=== PATIENT | female | born 1980 | race Caucasian/White ===

== ENCOUNTER → 2018-11-28 16:23 | Outpatient (CLI) | payer OTHER, SELFPAY ==
[2018-12-04 16:58] LABS: HPV Reflexed? NOT INDICATED
== END ==
PROVIDERS: Visit Provider Obstetrics & Gynecology
DX: Z12.4 Encounter for screening for malignant neoplasm of cervix (principal)
CPT/HCPCS: 87624; 88175; G0145

== ENCOUNTER → 2020-05-09 10:16 | Outpatient (CLI) | payer OTHER, SELFPAY ==
--- NOTE | 2020-05-09 10:19 | BI_ITS ---
MAMMOGRAPHY - BILATERAL SCREENING REASON FOR EXAM: Female, 40 years old. Routine annual screening examination. PERTINENT HISTORY: Grandmother with breast cancer. Aunt with breast cancer. TECHNIQUE: Digital bilateral breast yuly (3D mammographic acquisition) in the CC and MLO projections. 2-D mediolateral oblique (MLO) and craniocaudad (CC) views of both breasts were obtained. CAD: Full Field Digital Mammography with Computer Added Detection was performed. COMPARISON: Comparison is made with prior study dated 08/08/2016. FINDINGS: Breast Composition: The breasts are heterogeneously dense, which may obscure small masses. There are no dominant masses or suspicious calcifications. Stable small benign-appearing bilateral axillary lymph nodes. No other significant abnormalities are identified. There has been no significant change since the prior study. BI/SCREEN MAMM (CAD) W/YULY BILAT IMPRESSION: Stable bilateral screening mammogram. Yearly follow-up mammogram recommended. (A) ASSESSMENT CATEGORY: BIRADS Category 2: Benign. A letter regarding these results will be sent to the patient by the facility within 30 days. Approximately 10% of breast cancers are not detected by mammography. A normal mammogram should not delay biopsy of a clinically suspicious abnormality. [id number] Electronically Signed: Hipolito Canales, at 9:12 EST , Service support ,
== END ==
PROVIDERS: Referring Provider Obstetrics & Gynecology; Visit Provider Obstetrics & Gynecology
DX: Z12.31 Encounter for screening mammogram for malignant neoplasm of breast (principal)
CPT/HCPCS: 77063; 77067

== ENCOUNTER 2021-05-17 14:40 | Outpatient (CLI) | payer OTHER, SELFPAY ==
--- NOTE | 2021-05-17 14:44 | BI_ITS ---
MAMMOGRAPHY - BILATERAL SCREENING REASON FOR EXAM: Female, 41 years old. Routine annual screening examination. PERTINENT HISTORY: Grandmother with breast cancer. Aunt with breast cancer. TECHNIQUE: Digital bilateral breast yuly (3D mammographic acquisition) in the CC and MLO projections. 2-D mediolateral oblique (MLO) and craniocaudad (CC) views of both breasts were obtained. CAD: Full Field Digital Mammography with Computer Added Detection was performed. COMPARISON: Comparison is made with prior study dated 05/09/2020 and 08/08/2016. FINDINGS: Breast Composition: The breasts are heterogeneously dense, which may obscure small masses. There are no dominant masses or suspicious calcifications. Stable small benign-appearing bilateral axillary lymph nodes. No other significant abnormalities are identified. There has been no significant change since the prior study. BI/SCRN MAMM (CAD)W/YULY BILAT IMPRESSION: Stable bilateral screening mammogram. Yearly follow-up mammogram recommended. (A) ASSESSMENT CATEGORY: BIRADS Category 2: Benign. A letter regarding these results will be sent to the patient by the facility within 30 days. Approximately 10% of breast cancers are not detected by mammography. A normal mammogram should not delay biopsy of a clinically suspicious abnormality. [id number] Electronically Signed: Hipolito Canales MD at 8:25 EST , Service support ,
== END 2021-05-17 23:59 | disposition short-term general hospital (02) ==
LOC: OPBI 14:42
PROVIDERS: Referring Provider Obstetrics & Gynecology; Visit Provider Obstetrics & Gynecology
DX: Z12.31 Encounter for screening mammogram for malignant neoplasm of breast (principal)
CPT/HCPCS: 77063; 77067

== ENCOUNTER 2021-06-21 14:36 | Outpatient (CLI) | payer OTHER, SELFPAY ==
[2021-06-25 14:08] LABS: HPV Reflexed? NOT INDICATED
== END 2021-06-21 23:59 | disposition home or self-care (01) ==
LOC: LABSPEC 14:36
PROVIDERS: Visit Provider Obstetrics & Gynecology
DX: Z12.4 Encounter for screening for malignant neoplasm of cervix (principal)
CPT/HCPCS: 88175; G0145

== ENCOUNTER → 2023-02-23 | Outpatient (CLI) | payer OTHER, SELFPAY ==
--- NOTE | 2023-02-23 15:15 | BI_ITS ---
MAMMOGRAPHY - BILATERAL SCREENING REASON FOR EXAM: Female, 42 years old. Routine annual screening examination. PERTINENT HISTORY: Grandmother with breast cancer. Aunt with breast cancer. TECHNIQUE: Digital bilateral breast yuly (3D mammographic acquisition) in the CC and MLO projections. 2-D mediolateral oblique (MLO) and craniocaudad (CC) views of both breasts were obtained. CAD: Full Field Digital Mammography with Computer Added Detection was performed. COMPARISON: Comparison is made with prior examination generally 2021 and May 09, 2020. FINDINGS: Breast Composition: The breasts are heterogeneously dense, which may obscure small masses. There are no dominant masses or suspicious calcifications. No other significant abnormalities are identified. There has been no significant change since the prior study. BI/SCRN MAMM (CAD)W/YULY BILAT IMPRESSION: Stable bilateral screening mammogram. Yearly follow-up mammogram recommended. (A) ASSESSMENT CATEGORY: BIRADS Category 1: Negative. A letter regarding these results will be sent to the patient by the facility within 30 days. Approximately 10% of breast cancers are not detected by mammography. A normal mammogram should not delay biopsy of a clinically suspicious abnormality. [id number] Electronically Signed: Hipolito Canales MD at 8:28 EDT ,
== END | disposition home or self-care (01) ==
LOC: OPBI 15:13
PROVIDERS: Referring Provider Family Medicine; Visit Provider Family Medicine
DX: Z12.31 Encounter for screening mammogram for malignant neoplasm of breast (principal)
CPT/HCPCS: 77063; 77067

== ENCOUNTER → 2024-03-08 | Outpatient (CLI) | payer OTHER, SELFPAY | END | disposition home or self-care (01) | LOC: OPBI 13:07 | DX: Z12.31 Encounter for screening mammogram for malignant neoplasm of breast (principal) | CPT/HCPCS: 77063; 77067 ==

== ENCOUNTER → 2025-03-26 | Outpatient (CLI) | payer OTHER, SELFPAY ==
--- NOTE | 2025-03-26 12:27 | BI_ITS ---
EXAM: SCRN MAMM (CAD)W/YULY BILAT DATE: 03/26/2025 CLINICAL HISTORY: F, Age 44 y/o , SCREEN TECHNIQUE: Procedure Code: [id number] Modality: MG Procedure: SCRN MAMM (CAD)W/YULY BILAT COMPARISON: Prior exam(s) dated 03/08/2024, 02/23/2023, and 05/17/2021.. FINDINGS: TISSUE DENSITY: The breasts are heterogeneously dense, which may obscure small masses. Bilateral Breast Mammographic Findings: A 7 mm partially obscured isodense mass in the superior, far posterior aspect of the right breast is noted. Further workup is indicated. A 7 mm partially obscured isodense mass in the medial aspect of the right breast is noted. Further workup is indicated. No suspicious masses, suspicious cluster of microcalcifications, architectural distortion or secondary signs of malignancy is identified in the left breast. BI/SCRN MAMM (CAD)W/YULY BILAT IMPRESSION: A 7 mm partially obscured isodense mass in the superior, far posterior aspect o f the right breast is noted. Further workup is indicated. A 7 mm partially obscured isodense mass in the medial aspect of the right breast is noted. Further workup is indicated. OVERALL FINAL ASSESSMENT BI-RADS 3: PROBABLY BENIGN. RECOMMENDATION: 6 Month Follow-up Additional Recommendation none A letter with findings and recommendations will be mailed to the patient. Reading Location: [id number]
--- OUTSIDE RECORDS SUMMARY | 2025-03-26 12:47 | XMS RPT_ITS | CCD ---
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 Name Role Phone Unavailable Primary Care Provider Unavailabl e No, Physician Primary Care Provider Unavailabl e Melvin STEPHENS, Jacqueline Primary Care Provider Unavailable Primary Care Provider Unavailabl e Melvin STEPHENS, Jacqueline Primary Care Provider Jacqueline Charles MD Unavailable Unavailable Primary Care Provider Unavailabl e MELVIN, JACQUELINE Attending Unavailable MELVIN, JACQUELINE Primary Care Unavailable MELVIN, JACQUELINE Attending Unavailable MELVIN, JACQUELINE Primary Care Unavailable MELVIN, JACQUELINE Primary Care Unavailable MELVIN, JACQUELINE Attending Unavailable MELVIN, JACQUELINE Primary Care Unavailable JOHN SAUNDERS Referring Unavailabl e Unavailable Primary Care Provider Unavailabl julia Mack MD, Breanne Mason Primary Care Provider JOHN SAUNDERS Referring Unavailabl e NADERBREANNE ESPINOSA Primary Care Unavaila ble JOHN SAUNDERS Referring Unavailabl e BREANNE MACK Primary Care Unavaila ble BREANNE MACK Referring Unavaila ble BREANNE MACK Primary Care Unavaila ble JOHN SAUNDERS Attending Unavailabl e CHELLY GEORGE Attending Unavailable BREANNE MACK Primary Care Unavaila IVORY Ragsdale Attending Unavailable IVORY MORRIS Referring Unavailable IVORY MORRIS Primary Care Unavailable Chelly George Attending Unavailable Chelly George Referring Unavailable ARTURO IVORY Primary Care Unavailable Allergies Allergy Classification Reported Allergen(s) Allergy Type Date of Onset Reaction(s) Facility (20 sources) Dexamethasone; Translations: [DEXAMETHASONE] Drug Allergy 04-08-2014 Other (See Comments), Mental Status Change [facility] (20 sources) Erythromycin; Translations: [ERYTHROMYCIN] Drug Allergy 04-03-2008 Other (See Comments) [facility] Medications Current Medications Medication Drug Class(es) Dates Sig (Normalized) Sig (Original) ascorbic acid 500 mg oral tablet (4 sources) Vitamin C take 2 tablets by mo uth once daily ascorbic acid, vitamin C, (VITAMIN C) 500 MG tablet Take 2 (two) tablets (1,000 mg total) by mouth daily . 0 Active take 1 tablet by mouth once deonna y ascorbic acid, vitamin C, (VITAMIN C) 500 MG tablet Take 500 mg by mouth daily . 0 Active b complex vitamins capsule (4 sources) take 1 capsule by mo uth once daily b complex vitamins capsule Take 1 (one) capsule by mouth daily . 0 Active take 1 capsule by mouth once kathe ly b complex vitamins capsule Take 1 capsule by mouth daily . 0 Active cholecalciferol 0.025 mg oral capsule (15 sources) Vitamin D Start: 07-16-2021 take 2 capsules by mouth once daily Cholecalciferol, Vitamin D3, 25 mcg (1,000 unit) cap Indications: Vitamin D deficiency Take 2 capsules by mouth once daily. 07/16/2021 Active take 2 tablets by mouth once kathe ly cholecalciferol, vitamin D3, 1,000 unit tablet Take 2 (two) tablets (2,000 Units total) by mouth daily . 0 Active take 1 tablet by mouth once deonna y cholecalciferol, vitamin D3, 1,000 unit tablet Take 1,000 Units by mouth daily . 0 Active Comment on above: Take 2 capsules by [facility] once daily. hydroCHLOROthiazide 12.5 mg oral capsule (12 sources) Thiazide Diuretic Start: 2021 End: 2022 take 1 capsule by mouth once daily hydroCHLOROthiazide 12.5 mg capsule Indications: Primary hypertension Take 1 capsule by mouth once daily. 90 capsule 3 03/08/2023 Active Comment on above: Take 1 capsule by mo uth once daily. levothyroxine sodium 0.15 mg oral tablet (20 sources) l-Thyroxine Start: 2022 End: 2024 levothyroxine (SYNTHROID) 150 mcg tablet Indications: Acquired hypothyroidism TAKE 1 TABLET ONCE DAILY 90 tablet 3 07/08/2024 Active Start: 06-13-2022 End: 06-13-2023 take 1 tablet by mouth once daily levothyroxine (SYNTHROID, LEVOTHROID) 125 MCG tablet Take 1 (one) tablet (125 mcg total) by mouth once daily . 30 tablet 11 06/13/2022 06/13/2023 Active Start: 07-05-2021 End: 07-11-2022 levothyroxine (SYNTHROID) 15 0 mcg tablet Indications: Acquired hypothyroidism TAKE 1 TABLET BY MOUTH ONCE DAILY. TAKE TWO PILLS ON SUNDAYS. 110 tablet 3 07/11/2022 Active Start: 06-29-2020 levothyroxine sodium (LEVOTHYROXINE ORAL) Take 150 mcg by mouth daily 150mcg Monday-Monday, 300mcg monday . 0 06/29/2020 Active Start: 06-29-2020 levothyroxine sodium (LEVOTHYROXINE ORAL) Take by mouth daily . 0 06/29/2020 Active Comment on above: Take 1 tablet by jose th once daily. Take two pills on Sundays. 24 hr metFORMIN hydrochloride 500 mg extended release oral tablet (20 sources) Biguanide Start: 05-10-2023 End: 04-15-2024 metFORMIN ER (GLUCOPHAGE XR) 500 mg 24 hr tablet Indications: PCOS (polycystic ovarian syndrome) TAKE 4 TABLETS ONCE DAILY 360 tablet 3 04/15/2024 Active Start: 10-07-2022 take 4 tablets by mo uth once daily metFORMIN ER (GLUCOPHAGE XR) 500 mg 24 hr tablet Indications: PCOS (polycystic ovarian syndrome) TAKE 4 TABLETS BY MOUTH ONCE DAILY. 360 tablet 3 10/07/2022 Active Start: 10-04-2021 take 4 tablets by mo uth once daily metFORMIN ER (GLUCOPHAGE XR) 500 mg 24 hr tablet Indications: PCOS (polycystic ovarian syndrome) Take 4 tablets by mouth once daily. 360 tablet 3 10/04/2021 Active Start: 07-05-2021 End: 10-02-2021 take 4 tablets by mouth once daily metFORMIN ER (GLUCOPHAGE XR) 500 mg 24 hr tablet Indications: PCOS (polycystic ovarian syndrome) Take 4 tablets by mouth once daily. 360 tablet 3 07/05/2021 10/02/2021 Discontinued Start: 06-29-2020 take 2000 mg by mout h once daily metformin HCl (METFORMIN ORAL) Take 2,000 mg by mouth daily . 0 06/29/2020 Active Start: 06-29-2020 metformin HCl (METFORMIN ORAL) Take by mouth . 0 06/29/2020 Active Comment on above: Take 4 tablets by [facility] once daily. methylPREDNISolone 4 mg oral tablet (5 sources) Corticosteroid Start: 2020 take 1 tablet by mouth once methylPREDNISolone (MEDROL) 4 MG tablet Take 4 mg by mouth Once, as directed on package labeling . 0 10/07/2020 Active Zinc Sulfate (4 sources) zinc sulfate (ZI NC-15 ORAL) Take by mouth . 0 Active Problems Active Problems Problem Classification Problem Date Documented Date Episodic/Chronic Disorders of lipid metabolism (4 sources) Hyperlipidemia; Translations: [Hyperlipidemia, unspecified] Onset: 07-09-2024 07-09-2024 Chronic Essential hypertension (15 sources) Hypertensive disorder; Translations: [Essential (primary) hypertension] Onset: 07-05-2021 03-01-2022 Chronic Immunizations and screening for infectious disease (1 source) Encounter for screening for human papillomavirus (HPV); Translations: [Encounter for screening for human papillomavirus (HPV)] Onset: 02-27-2025 Episodic Menopausal disorders (1 source) Excessive bleeding in the premenopausal period; Translations: [Excessive bleeding in premenopausal period] Onset: 02-27-2025 Chronic Nutritional deficiencies (18 sources) Vitamin D deficiency; Translations: [Vitamin D deficiency, unspecified] Onset: 06-20-2016 08-04-2021 Chronic Other and ill-defined heart disease (2 sources) Heart disease, unspecified; Translations: [Heart disease, unspecified] Onset: 06-02-2023 Chronic Other connective tissue disease (12 sources) Plantar fasciitis of left foot; Translations: [Plantar fascial fibromatosis] Episodic Other connective tissue disease (8 sources) Calcaneal spur; Translations: [Calcaneal spur, unspecified foot] 10-22-2020 Episodic Other connective tissue disease (2 sources) Plantar fascial fibromatosis; Translations: [Plantar fascial fibromatosis] Onset: 10-22-2020 Episodic Other endocrine disorders (20 sources) Polycystic ovary syndrome; Translations: [Polycystic ovarian syndrome] Onset: 06-20-2016 Chronic Other endocrine disorders (2 sources) Polycystic ovarian syndrome; Translations: [Polycystic ovarian syndrome] Onset: 10-22-2020 Chronic Other hereditary and degenerative nervous system conditions (3 sources) Restless legs; Translations: [Restless legs syndrome] Onset: 03-01-2022 03-01-2022 Chronic Other hereditary and degenerative nervous system conditions (2 sources) Restless legs syndrome; Translations: [Restless legs syndrome] Onset: 02-22-2022 Chronic Other liver diseases (4 sources) Alkaline phosphatase raised; Translations: [Abnormal levels of other serum enzymes] Onset: 07-09-2024 07-09-2024 Episodic Other nutritional; endocrine; and metabolic disorders (9 sources) Obesity; Translations: [Obesity, unspecified] 10-22-2020 Chronic Other nutritional; endocrine; and metabolic disorders (5 sources) Hypervitaminosis D; Translations: [Hypervitaminosis D] Onset: 08-06-2021 Chronic Other nutritional; endocrine; and metabolic disorders (3 sources) Obese class I; Translations: [Obesity, unspecified] Onset: 07-05-2021 07-05-2021 Chronic Other nutritional; endocrine; and metabolic disorders (3 sources) Disorder of carbohydrate metabolism; Translations: [Other disorders of intestinal carbohydrate absorption] Onset: 03-01-2022 03-01-2022 Chronic Other nutritional; endocrine; and metabolic disorders (2 sources) Other disorders of intestinal carbohydrate absorption; Translations: [Other disorders of intestinal carbohydrate absorption] Onset: 03-01-2022 Chronic Other nutritional; endocrine; and metabolic disorders (2 sources) Hypervitaminosis D; Translations: [Hypervitaminosis D] Onset: 08-04-2021 Chronic Other screening for suspected conditions (not mental disorders or infectious disease) (10 sources) Endocrine finding; Translations: [Other specified abnormal findings of blood chemistry] Onset: 06-20-2016 Resolved: 07-23-2018 07-23-2018 Episodic Thyroid disorders (20 sources) Hypothyroidism; Translations: [Hypothyroidism, unspecified] Onset: 05-15-2012 Resolved: 06-07-2019 Chronic Past or Other Problems Problem Classification Problem Date Documented Da te Episodic/Chronic Other circulatory disease (4 sources) Elevated blood-pressure reading without diagnosis of hypertension; Translations: [Elevated blood-pressure reading, without diagnosis of hypertension] Onset: 07-05-2021 08-04-2021 Episodic Other liver diseases (1 source) Abnormal levels of other serum enzymes; Translations: [Elevated alkaline phosphatase level] Onset: 07-09-2024 Episodic Thyroid disorders (9 sources) Disorder of thyroid gland; Translations: [Disorder of thyroid, unspecified] Resolved: 08-04-2021 Episodic Results Test Name Value Interpretation Reference Range Facility Julio 02-27-2025 CNOV Office Visit (OBGYWM ) -- INGRID CAI I ([id number]) 1980 F Date Time Provider Department 02/27/25 2:40 PM CHELLY GEORGE OBGYWM During your visit today, we recorded the following information about you: Blood pressure Weight Height Last Period 118/80 76.7 kg 1.6 m 02/01/25 Chelly George MD 02/27/2025 4:31 PM Signed Nutritionalist offered: Patient declines. Quintero is a 44 year old who presents for an annual gynecologic exam with complaints, discuss PCOS, heavy and painful periods, discuss possibility of hysterectomy. Previous patient of Dr. Garcia. Established with an dining service supervisor for thyroid disease and PCOS. She reports she is on Metformin. Reports PCP was following her CMP and alkaline phosphatase has been elevated. Per patient PCP did not recommend follow up. Age at Menarche: 13 Still get period: Yes Menstrual cycles are regular and monthly. She does not keep track of cycles. Bleeding lasts 3-4 days. Uses a super plus tampon on heaviest days and she is changing it often Had weight gain with OCP Did well with IUD in the past She is not interested in an IUD at this time. Desires a hysterectomy as she does not desire future Bleeding amount bothersome: Yes Bleeding between periods: No Period symptoms: Breast tenderness; Cramps; Mood change Time with current partner: 20 years Number of lifetime partners: 2 control frequency: Never HPV vaccine: No; HPV:N/A Last pap smear: 2009, normal History of abnormal pap: No, all prior PAP smears have been normal Bothersome pelvic pain: No Last mammogram: 2023normal OB History Gravida2 Para1 Term0 Preterm0 AB0 Living2 SAB0 IAB0 Ectopic0 Multiple0 Live Births2 Development Expert History LMP: 02/01/2025, Having periods Age at Menarche: Age at First : Age at Menopause: Development Expert History Comments: Sexual Activity: Yes; Male Contraception: Tubal Ligation Menstrual Tracking History Flowsheet Row Office Visit from 02/27/2025 in OB/Gynecology Period Cycle (Days) 30 Period Duration (Days) 4 Menstrual Flow Heavy PAST MEDICAL HISTORY Diagnosis Date Elevated dehydroepiandrosterone (DHEA) level 06/20/2016 Goiter 07/23/2018 Thyroid ultrasound in 07/2018 showed no discrete thyroid nodule bilaterally. 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 Insertion of IUD 12/31/2008 Mirena Vitamin D deficiency 06/20/2016 PAST SURGICAL HISTORY Procedure Laterality Date DELIVERY ONLY 2008 DELIVERY ONLY 2011 IUD INSERTION (CUSTODIAN SUPERVISOR DEPT)_*FL 12/31/2008 Mirena IUD REMOVAL (CUSTODIAN SUPERVISOR DEPT)_*FL 01/21/2011 LIGATE FALLOPIAN TUBE 12/2011 TONSILLECTOMY PRIMARY/SECONDARY Tonsillectomy FAMILY HISTORY Problem Relation Age of Onset No Known Problems Mother No Known Problems Father No Known Problems Brother Arthritis Maternal Grandmother Heart Maternal Grandmother Hypertension Maternal Grandfather Lipids Maternal Grandfather Breast Cancer Paternal Grandmother Alzheimer's Disease Paternal Grandfather Breast Cancer Paternal Aunt SOCIAL HISTORY Social History Tobacco Use Smoking status: Former Current packs/day: 0.00 Types: Cigarettes Start date: 10/29/2005 Quit date: 10/29/2010 Years since quittin.3 Smokeless tobacco: Never Vaping Use Vaping status: Never Used Substance Use Topics Alcohol use: No Drug use: No REVIEW OF SYSTEMS Abdomen: No abdominal pain, nausea, vomiting, diarrhea, or constipation. Bladder: No dysuria, gross hematuria, urinary frequency, urinary urgency, or incontinence. Breast: No breast lumps, nipple d/c, overlying skin changes, redness or skin retraction. Allergies and current medication updated:Yes SENSITIVE EXAM: The sensitive examination was discussed with the Patient or Patient's Authorized Multiple Drum Sander. As applicable, any other physician, advance practice provider, medical student, or other health professional student that will be observing or involved in the sensitive examination for educational or training purposes was discussed with the Patient or Authorized Multiple Drum Sander. The Patient or Authorized Multiple Drum Sander has agreed to proceed with the sensitive examination. (Sensitive examination includes inspection and/or palpation of the breasts, pelvis, prostate and anorectal regions). EXAM: BP 118/80 Ht 5' 3 (1.60m) Wt 169 lb (76.7kg) LMP 02/01/2025 BMI 29.94 kg/(m2). GENERAL: pleasant, female in no apparent distress HEENT: Normocephalic and atraumatic BREAST: soft, non-tender, symmetric, no dominant mass, normal nipple-areolar complex, no lymphadenopathy, and no nipple discharge CHEST: Normal inspiratory effort ABDOMEN: soft, non-tender, and no masses PELVIC: external genitalia normal, normal Bartholin's glands, urethra, [place]'s glands, no vulvar lesions, no cervical lesions, good vaginal support, physiologic discharge present, normal a (more content not included)... Normal [facility] HIGH RISK HUMAN PAPILLOMA RADHA (HPV), PCR FOR DETECTION AND GENOTYPINGon 02-27-2025 HPV 16 Ag Ql (Unsp spec) Not detected Normal Not detected [facility] Comment on above: Order Comment: Speci men Type: FLUID SPECIMEN Ordering Facility: [facility] Address: [address] [place] [address] Performed By: #### H PVHRT #### [facility] CLIA [id number] [address] [place] [address] [place] HPV 18 Ag Ql (Unsp spec) Not detected Normal Not detected [facility] Comment on above: Order Comment: Speci men Type: FLUID SPECIMEN Ordering Facility: [facility] Address: [address] [place] [address] Performed By: #### H PVHRT #### [facility] CLIA [id number] [address] [place] [address] [place] HPV 31+33+35+39+45+51+ 52+56+58+59+66+68 DNA DANITA+probe Ql (Cvx) Not detected Normal Not detected [facility] Comment on above: Order Comment: Speci men Type: FLUID SPECIMEN Ordering Facility: [facility] Address: [address] [place] [address] Result Comment: High Risk HPV Other Type includes HPV types 31, 33, 35, 39, 45, 51, 52, 56, 58, 59, 66 and 68. Performed By: #### H PVHRT #### [facility] CLIA [id number] [address] [place] [address] [place] PAP TESTon 02-27-2025 ADEQUACY Normal [facility] Comment on above: Order Comment: Speci men Type: FLUID SPECIMEN Ordering Facility: [facility] Address: [address] [place] [address] Result Comment: Sati sfactory for interpretation. Transformation zone present Performed By: #### L [id number] #### [facility] CLIA [id number] [address] [place] [address], [address] [place] [address] [place] [facility] CLIA [id number] [address] [place] [address] [place] CASE REPORT Normal [facility] Comment on above: Order Comment: Speci men Type: FLUID SPECIMEN Ordering Facility: [facility] Address: [address] [place] [address] Result Comment: Gyne cologic Cytology Report Case: [id number] Authorizing Provider: Chelly George MD Collected: 02/27/2025 03:23 PM Ordering Location: OB/Gynecology Received: 02/27/2025 04:27 PM First Screen: Elizabeth Allred, CT, ASCP Specimen: Pap Test, ThinPrep, Cervix Performed By: #### L [id number] #### [facility] CLIA [id number] [address] [place] [address] [place] [facility] CLIA [id number] [address] [place] [address] [place] CLINICAL HISTORY, CYTOLOGY, CUSTODIAN SUPERVISOR Routine Exam Normal [facility] Comment on above: Order Comment: Speci men Type: FLUID SPECIMEN Ordering Facility: [facility] Address: [address] [place] [address] Performed By: #### L [id number] #### [facility] CLIA [id number] [address] [place] [address] [place] [facility] CLIA [id number] [address] [place] [address] [place] FINAL PERFORMING LAB Normal [facility] Comment on above: Order Comment: Speci men Type: FLUID SPECIMEN Ordering Facility: [facility] Address: [address] [place] [address] Result Comment: Tech nical component, lead assembler screening performed at: [facility], [address] [place] [address], [address] Floor, [place] [address] CLIA: [id number] Diagnostic interpretation performed at: [facility], [address] [place] [address], [address], [place] [address] CLIA# [id number] Reimbursement Director: Theodore Minaya MD Performed By: #### L [id number] #### [facility] CLIA [id number] [address] [place] [address] 3, [address] [place] [address] [place] [facility] CLIA [id number] [address] [place] [address] [place] INTERPRETATION, CYTOLOGY, CUSTODIAN SUPERVISOR Normal [facility] Comment on above: Order Comment: Speci men Type: FLUID SPECIMEN Ordering Facility: [facility] Address: [address] [place] [address] Result Comment: Nega tive for intraepithelial lesion or malignancy. at 0917 EST Performed By: #### L [id number] #### [facility] CLIA [id number] [address] [place] [address] 3, [address] [place] [address] [place] [facility] CLIA [id number] [address] [place] [address] [place] LMP 02/01/2025 Normal [facility] Comment on above: Order Comment: Speci men Type: FLUID SPECIMEN Ordering Facility: [facility] Address: [address] [place] [address] Performed By: #### L [id number] #### [facility] CLIA [id number] [address] [place] [address] 3, [address] [place] [address] [place] [facility] CLIA [id number] [address] [place] [address] [place] PAP DISCLAIMER COMMENT The Pap Smear is a screening test for cervical cancer. False negative results occur with all screening tests, emphasizing the need for rescreening at recommended intervals, and clinical correlation. Normal [facility] Comment on above: Order Comment: Speci men Type: FLUID SPECIMEN Ordering Facility: [facility] Address: [address] [place] [address] Performed By: #### L [id number] #### [facility] CLIA [id number] [address] [place] [address] 3, [address] [place] [address] [place] [facility] CLIA [id number] [address] [place] [address] [place] PAP INTERVENTIONAL PHYSIATRIST COMMENT This specimen has be en analyzed by the FDA-approved [employer] System, which uses digital imaging and an enhanced artificial intelligence image analysis algorithm to identify montoya of interest on the microscopic slide, to assist the slot editor and pathologist in evaluating cells on ThinPrep Pap tests. Following analysis, montoya of interest on the microscopic slide selected by the algorithm are reviewed by a slot editor. If a sample requires hierarchical review, the pathologist will review the same montoya of interest selected by the algorithm prior to final interpretation. Normal [facility] Comment on above: Order Comment: Speci men Type: FLUID SPECIMEN Ordering Facility: [facility] Address: [address] [place] [address] Performed By: #### L [id number] #### [facility] CLIA [id number] [address] [place] [address] 3, [address] [place] [address] [place] [facility] CLIA [id number] [address] [place] [address] [place] Comprehensive metabolic 2000 panelon 11-28-2024 Albumin [Mass/Vol] 4.5 g/dL Normal 3.9-4.9 [facility] Comment on above: Order Comment: Speci men Type: BLOOD SPECIMEN Ordering Facility: [facility] Address: [address] [place] [address] Performed By: #### 2 4323-8 #### [facility] CLIA [id number] [address] [place] [address] [place] ALP [Catalytic activity/Vol] 136 U/L High 34-123 [facility] Comment on above: Order Comment: Speci men Type: BLOOD SPECIMEN Ordering Facility: [facility] Address: [address] [place] [address] Performed By: #### 2 4323-8 #### [facility] CLIA [id number] [address] [place] [address] [place] ALT With P-5'-P [Catalytic activity/Vol] 11 U/L Normal 7-38 [facility] Comment on above: Order Comment: Speci men Type: BLOOD SPECIMEN Ordering Facility: [facility] Address: [address] [place] [address] Performed By: #### 2 4323-8 #### [facility] CLIA [id number] [address] [place] [address] [place] Anion gap [Moles/Vol] 13 mmol/L Normal 8-15 [facility] Comment on above: Order Comment: Speci men Type: BLOOD SPECIMEN Ordering Facility: [facility] Address: [address] [place] [address] Performed By: #### 2 4323-8 #### [facility] CLIA [id number] [address] [place] [address] [place] [place] AST With P-5'-P [Catalytic activity/Vol] 13 U/L Normal 13-35 [facility] Comment on above: Order Comment: Speci men Type: BLOOD SPECIMEN Ordering Facility: [facility] Address: [address] [place] [address] Performed By: #### 2 4323-8 #### [facility] CLIA [id number] [address] [place] [address] [place] Bilirubin [Mass/Vol] 0.2 mg/dL Normal 0.2-1.3 [facility] Comment on above: Order Comment: Speci men Type: BLOOD SPECIMEN Ordering Facility: [facility] Address: [address] [place] [address] Performed By: #### 2 4323-8 #### [facility] CLIA [id number] [address] [place] [address] [place] Calcium [Mass/Vol] 10.2 mg/dL Normal 8.5-10.2 [facility] Comment on above: Order Comment: Speci men Type: BLOOD SPECIMEN Ordering Facility: [facility] Address: [address] [place] [address] Performed By: #### 2 4323-8 #### [facility] CLIA [id number] [address] [place] [address] [place] Chloride [Moles/Vol] 101 mmol/L Normal 98-107 [facility] Comment on above: Order Comment: Speci men Type: BLOOD SPECIMEN Ordering Facility: [facility] Address: [address] [place] [address] Performed By: #### 2 4323-8 #### [facility] CLIA [id number] [address] [place] [address] [place] CO2 [Moles/Vol] 25 mmol/L Normal 22-30 [facility] Comment on above: Order Comment: Speci men Type: BLOOD SPECIMEN Ordering Facility: [facility] Address: [address] [place] [address] Performed By: #### 2 4323-8 #### [facility] CLIA [id number] [address] [place] [address] [place] Creatinine [Mass/Vol] 0.69 mg/dL Normal 0.58-0.96 [facility] Comment on above: Order Comment: Speci men Type: BLOOD SPECIMEN Ordering Facility: [facility] Address: [address] [place] [address] Performed By: #### 2 4323-8 #### [facility] CLIA [id number] [address] [place] [address] [place] eGFRcr SerPlBld CKD-EPI 2020 111 mL/min/1.73m??? Normal >=60 [facility] Comment on above: Order Comment: Jamila madrigal Type: BLOOD SPECIMEN Ordering Facility: [facility] Address: [address] [place] [address] Result Comment: Sierra mated Glomerular Filtration Rate (eGFR) is calculated using the 2020 CKD-EPI creatinine equation. This equation utilizes serum creatinine, sex, and age as parameters. The creatinine assay has traceable calibration to isotope dilution-mass spectrometry. Refer to KDIGO guidelines for clinical interpretation. In patients with unstable renal function, e.g. those with acute kidney injury, the eGFR may not accurately reflect actual GFR. Performed By: #### 2 4323-8 #### [facility] CLIA [id number] [address] [place], [place] [id number] [place] Glucose [Mass/Vol] 95 mg/dL Normal 74-99 [facility] Comment on above: Order Comment: Jamila madrigal Type: BLOOD SPECIMEN Ordering Facility: [facility] Address: [address] [place] [address] Result Comment: The [place] Diabetes [employer] (ADA) provides guidance for cutoff values for fasting glucose and random glucose. The ADA defines fasting as no caloric intake for at least 8 hours. Fasting plasma glucose results between 100 to 125 mg/dL indicate increased risk for diabetes (prediabetes). Fasting plasma glucose results greater than or equal to 126 mg/dL meet the criteria for diagnosis of diabetes. In the absence of unequivocal hyperglycemia, results should be confirmed by repeat testing. In a patient with classic symptoms of hyperglycemia or hyperglycemic crisis, random plasma glucose results greater than or equal to 200 mg/dL meet the criteria for diagnosis of diabetes. Reference: Standards of Medical Care in Diabetes 2016, [place] [employer]. Diabetes Care. 2016.39(Suppl 1). Performed By: #### 2 4323-8 #### [facility] CLIA [id number] [address] [place], [place] [id number] [place] Potassium [Moles/Vol] 3.7 mmol/L Normal 3.7-5.1 [facility] Comment on above: Order Comment: Jamila madrigal Type: BLOOD SPECIMEN Ordering Facility: [facility] Address: [address] [place] [address] Performed By: #### 2 4323-8 #### [facility] CLIA [id number] [address] [place] [address] [place] Protein [Mass/Vol] 7.4 g/dL Normal 6.3-8.0 [facility] Comment on above: Order Comment: Speci men Type: BLOOD SPECIMEN Ordering Facility: [facility] Address: [address] [place] [address] Performed By: #### 2 4323-8 #### [facility] CLIA [id number] [address] [place] [address] [place] Sodium [Moles/Vol] 139 mmol/L Normal 136-144 [facility] Comment on above: Order Comment: Speci men Type: BLOOD SPECIMEN Ordering Facility: [facility] Address: [address] [place] [address] Performed By: #### 2 4323-8 #### [facility] CLIA [id number] [address] [place] [address] [place] Urea nitrogen [Mass/Vol] 9 mg/dL Normal 7-21 [facility] Comment on above: Order Comment: Speci men Type: BLOOD SPECIMEN Ordering Facility: [facility] Address: [address] [place] [address] Performed By: #### 2 4323-8 #### [facility] CLIA [id number] [address] [place] [address] [place] ALKALINE PHOSPHATASE ISOENZY MES (P)on 07-09-2024 ALK PHOS BONE % 23.2 % Normal 10.7-68.3 [facility] Comment on above: Order Comment: Speci men Type: BLOOD SPECIMEN Ordering Facility: [facility] Address: [address] [place] [address] Performed By: #### A LKISOP #### [facility] CLIA [id number] [address] [place] [address] [place] ALK PHOS LIVER % 76.8 % Normal 26.0-86.2 [facility] Comment on above: Order Comment: Speci men Type: BLOOD SPECIMEN Ordering Facility: [facility] Address: [address] [place] [address] Performed By: #### A LKISOP #### [facility] CLIA [id number] [address] [place] [address] [place] BONE FRACTION 30.2 U/L Normal 12.9-52.6 [facility] Comment on above: Order Comment: Speci men Type: BLOOD SPECIMEN Ordering Facility: [facility] Address: [address] [place] [address] Performed By: #### A LKISOP #### [facility] CLIA [id number] [address] [place] [address] [place] INTESTINE FRACTION 0.0 U/L Normal 0.0-16.3 [facility] Comment on above: Order Comment: Speci men Type: BLOOD SPECIMEN Ordering Facility: [facility] Address: [address] [place] [address] Performed By: #### A LKISOP #### [facility] CLIA [id number] [address] [place] [address] [place] LIVER FRACTION 99.8 U/L High 16.0-69.3 [facility] Comment on above: Order Comment: Speci men Type: BLOOD SPECIMEN Ordering Facility: [facility] Address: [address] [place] [address] Performed By: #### A LKISOP #### [facility] CLIA [id number] [address] [place] [address] OF SUE Neutrophils/100 WBC (Bld) 0.0 % Normal 0.0-24.2 [facility] Comment on above: Order Comment: Speci men Type: BLOOD SPECIMEN Ordering Facility: [facility] Address: [address] [place] [address] Performed By: #### A LKISOP #### [facility] CLIA [id number] [address] [place] [address] [place] ALP SerPl-cCncon 07-09-2024 ALP [Catalytic activity/Vol] 130 U/L High 34-123 [facility] Comment on above: Order Comment: Speci men Type: BLOOD SPECIMEN Ordering Facility: [facility] Address: [address] [place] [address] Performed By: #### 6 768-6 #### [facility] CLIA [id number] [address] [place] [address] [place] 25(OH)D3 SerPl-mCncon 2024 25-hydroxyvitamin D3 [Mass/Vol] 63.2 ng/mL Normal 31.0-80.0 [facility] Comment on above: Order Comment: Speci men Type: BLOOD SPECIMEN Ordering Facility: [facility] Address: [address] [place] [address] Result Comment: Clas sification of 25 [place] Vitamin D status: Deficiency/Insufficiency: < or = 30 ng/ml. Sufficiency/Optimal Levels: 31-80 ng/mL Toxicity: > 100 ng/mL. Test performed by chemiluminescent immunoassay. 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 Menses remain regular since starting metformin. History of vitamin D deficiency. Now has hypertension, on HCTZ. Weight fairly stable. COVID vaccination was completed. No new neck symptoms/enlargement. Current Outpatient Medications on File Prior to Visit Medication Sig metFORMIN ER (GLUCOPHAGE XR) 500 mg 24 hr tablet TAKE 4 TABLETS ONCE DAILY levothyroxine (SYNTHROID) 150 mcg tablet TAKE 1 TABLET ONCE DAILY hydroCHLOROthiazide 12.5 mg capsule Take 1 capsule by mouth once daily. Cholecalciferol, Vitamin D3, 25 mcg (1,000 unit) cap Take 2 capsules by mouth once daily. ALLERGIES Allergen Reactions Dexamethasone Mental Status Change Erythromycin CHILDHOOD REACTION PAST MEDICAL HISTORY Diagnosis Date Insertion of IUD 12/31/2008 Mirena PAST SURGICAL HISTORY Procedure Laterality Date IUD INSERTION ([employer])_*FL 12/31/2008 Mirena IUD REMOVAL ([employer] DE[employer])_*FL 01/21/2011 REMOVAL OF TONSILS,<12 Y/O Tonsillectomy FAMILY HISTORY Problem Relation Age of Onset Alzheimer's Disease Paternal Grandfather Arthritis Maternal Grandmother Breast Cancer Paternal Grandmother Breast Cancer Paternal Aunt Heart Maternal Grandmother Hypertension Maternal Grandfather Lipids Maternal Grandfather SOCIAL HISTORY Social History Substance Use Topics Smoking status: Former Smoker Years: 5.00 Types: Cigarettes Quit date: 10/29/2010 Smokeless tobacco: Never Used Alcohol use No Answers submitted by the patient for this visit: Core Review of Systems (Submitted on 07/01/2024) Fever : No Night sweats: No Recent unintentional weight change: No Nasal Congestion: No Hearing Loss: No Vision Disturbance: No A cough: No Difficulty Breathing?: No Chest pain: No Irregular heartbeat: No Leg Swelling: No Nausea: No Diarrhea: No Black tarry stools: No Difficulty Urinating?: No Awaken at Night More Than Once to Urinate?: No Joint pain or stiffness: No Muscle aches: No Leg or Foot Discomfort at Night?: No A rash: No Dizziness: No Headaches: No Memory Loss: No Seizures: No PHYSICAL EXAM: BP 127/80 Pulse 95 Resp 17 Ht 159.5 cm (5' 2.8) Wt 76.2 kg (167 lb 15.9 oz) LMP 06/14/2024 (Exact Date) SpO2 100% BMI 29.95 kg/m? Weight up 3 pounds since 03/2023 General: alert, in no acute distress. BP normal. Eyes: STEPH, extra occular movements normal Oropharynx: lips, mucosa, and tongue normal, Thyroid: firm, unenlarged, no palpable thyromegaly. Thyroid size: normal Heart: RRR Breathing unlabored. Abdomen:not examined Extremities: normal exam of the extremities, no edema present, no deformities Neuro: Awake, alert and oriented x 3, No involuntary motions. Skin: color, texture, turgor normal, no rashes or lesions Thyroid ultrasound in 07/2018 showed no discrete thyroid nodule bilaterally. IMPRESSION: Hypothyroidism - continue the current levothyroxine dose, recheck TFTs Vitamin D deficiency - continue supplement, check vitamin D level PCOS - continue metformin, weight loss efforts, check CMP Hypertension - good BP control, check lipid panel PLAN: Check CMP, lipid panel, TSH, free T4, and 25-hydroxyvitamin D Will call with results. Continue current medications See me again in 12 months. John Saunders MD I spent a total of 30 minutes on the date of service which included preparing to see the patient, [id number] patient care, completing clinical documentation, performing a medically appropriate examination, counseling and educating the patient/family/caregiver and ordering medications, tests, or procedures. John Saunders MD 07/08/2024 8:22 AM Signed Get labs done at [facility]. Will call with results. See me again in 12 months. Allergies As of Date: 07/08/2024 Noted Allergy Reaction DEXAMETHASONE 04/08/2014 1 - Mental Status Change ERYTHROMYCIN 04/03/2008 Comments: CHILDHOOD REACTION Date Reviewed: 07/08/2024 Reviewed by: Oseas Landa MA - Fully Assessed Reason for Visit: Thyroid Problem [110] Primary Visit Diagnosis:Primary hypertension [I10] Other Visit Diagnoses:Acquired hypothyroidism [E03.9] PCOS (polycystic ovarian syndrome) [E28.2] Vitamin D deficiency [E55.9] Order(s):LIPID PANEL, NONFASTING [SQLIPNF] Order #: [id number] FUTURE THYROID STIMULATING HORMONE [SQTSH] Order #: [id number] FUTURE T4 FREE/FREE THYROXI (more content not included)... Normal [facility] Comprehensive metabolic 2000 panelon 07-08-2024 Albumin [Mass/Vol] 4.6 g/dL 3.9 - 4.9 g/dL [facility] ALP [Catalytic activity/Vol] 153 U/L High 34 - 123 U/L [facility] ALT [Catalytic activity/Vol] 56 U/L High 7 - 38 U/L [facility] Anion gap [Moles/Vol] 13 mmol/L 8 - 15 mmol/L [facility] AST [Catalytic activity/Vol] 33 U/L 13 - 35 U/L [facility] Bilirubin [Mass/Vol] 0.3 mg/dL 0.2 - 1.3 mg/dL [facility] Calcium [Mass/Vol] 10.2 mg/dL 8.5 - 10. 2 mg/dL [facility] Chloride [Moles/Vol] 106 mmol/L 98 - 107 mmol/L [facility] CO2 [Moles/Vol] 22 mmol/L 22 - 30 mmol/L [facility] Creatinine [Mass/Vol] 0.67 mg/dL 0.58 - 0.96 mg/dL [facility] GFR/1.73 sq M.predicted among non-blacks MDRD (S/P/Bld) [Vol rate/Area] 111 mL/min/{1.73_m2} - PINF [facility] Comment on above: Estimated Glomerular Filtration Rate (eGFR) is calculated using the 2020 CKD-EPI creatinine equation. This equation utilizes serum creatinine, sex, and age as parameters. The creatinine assay has traceable calibration to isotope dilution-mass spectrometry. Refer to KDIGO guidelines for clinical interpretation. In patients with unstable renal function, e.g. those with acute kidney injury, the eGFR may not accurately reflect actual GFR. Glucose [Mass/Vol] 87 mg/dL 74 - 99 mg/dL [facility] Comment on above: The [place] Diabete s Association (ADA) provides guidance for cutoff values for fasting glucose and random glucose. The ADA defines fasting as no caloric intake for at least 8 hours. Fasting plasma glucose results between 100 to 125 mg/dL indicate increased risk for diabetes (prediabetes). Fasting plasma glucose results greater than or equal to 126 mg/dL meet the criteria for diagnosis of diabetes. In the absence of unequivocal hyperglycemia, results should be confirmed by repeat testing. In a patient with classic symptoms of hyperglycemia or hyperglycemic crisis, random plasma glucose results greater than or equal to 200 mg/dL meet the criteria for diagnosis of diabetes. Reference: Standards of Medical Care in Diabetes 2016, [place] [employer]. Diabetes Care. 2016.39(Suppl 1). Potassium [Moles/Vol] 4.4 mmol/L 3.7 - 5.1 mmol/L [facility] Protein [Mass/Vol] 7.7 g/dL 6.3 - 8.0 g/dL [facility] Sodium [Moles/Vol] 141 mmol/L 136 - 144 mmol/L [facility] Urea nitrogen [Mass/Vol] 7 mg/dL 7 - 21 mg/dL [facility] Albumin [Mass/Vol] 4.6 g/dL Normal 3.9-4.9 [facility] Comment on above: Order Comment: Jamila madrigal Type: BLOOD SPECIMEN Ordering Facility: [facility] Address: [address] [place] [address] Performed By: #### L IPNF, 6-3, 32147-1 #### [facility] CLIA [id number] [address] ALP [Catalytic activity/Vol] 153 U/L High 34-123 [facility] Comment on above: Order Comment: Jamila madrigal Type: BLOOD SPECIMEN Ordering Facility: [facility] Address: [address] [place] [address] Performed By: #### L IPNF, 6-3, 27817-0 #### [facility] CLIA [id number] [address] ALT [Catalytic activity/Vol] 56 U/L High 7-38 [facility] Comment on above: Order Comment: Jamila madrigal Type: BLOOD SPECIMEN Ordering Facility: [facility] Address: [address] [place] [address] Performed By: #### L IPNF, 6-3, 65124-3 #### [facility] CLIA [id number] [address] Anion gap [Moles/Vol] 13 mmol/L Normal 8-15 [facility] Comment on above: Order Comment: Speci men Type: BLOOD SPECIMEN Ordering Facility: [facility] Address: [address] [place] [address] Performed By: #### L IPNF, 6-3, 15177-9 #### [facility] CLIA [id number] [address] [place] [address] [place] AST [Catalytic activity/Vol] 33 U/L Normal 13-35 [facility] Comment on above: Order Comment: Speci men Type: BLOOD SPECIMEN Ordering Facility: [facility] Address: [address] [place] [address] Performed By: #### L IPNF, 6-3, 24252-8 #### [facility] CLIA [id number] [address] [place] [address] [place] Bilirubin [Mass/Vol] 0.3 mg/dL Normal 0.2-1.3 [facility] Comment on above: Order Comment: Speci men Type: BLOOD SPECIMEN Ordering Facility: [facility] Address: [address] [place] [address] Performed By: #### L IPNF, 3, 98573-3 #### [facility] CLIA [id number] [address] [place] [address] [place] Calcium [Mass/Vol] 10.2 mg/dL Normal 8.5-10.2 [facility] Comment on above: Order Comment: Speci men Type: BLOOD SPECIMEN Ordering Facility: [facility] Address: [address] [place] [address] Performed By: #### L IPNF, 3, 54023-4 #### [facility] CLIA [id number] [address] [place] [address] [place] Chloride [Moles/Vol] 106 mmol/L Normal 98-107 [facility] Comment on above: Order Comment: Speci men Type: BLOOD SPECIMEN Ordering Facility: [facility] Address: [address] [place] [address] Performed By: #### L IPNF, 6-3, 84120-2 #### [facility] CLIA [id number] [address] SUE CO2 [Moles/Vol] 22 mmol/L Normal 22-30 [facility] Comment on above: Order Comment: Jamila madrigal Type: BLOOD SPECIMEN Ordering Facility: [facility] Address: [address] [place] [address] Performed By: #### L IPNF, 6-3, 24594-6 #### [facility] CLIA [id number] [address] [facility] Creatinine [Mass/Vol] 0.67 mg/dL Normal 0.58-0.96 [facility] Comment on above: Order Comment: Jamila madrigal Type: BLOOD SPECIMEN Ordering Facility: [facility] Address: [address] [place] [address] Performed By: #### L IPNF, 6-3, 92540-8 #### [facility] CLIA [id number] [address] Creatinine and Glomerular filtration rate.predicted panel (S/P/Bld) 111 mL/min/1.73m??? Normal >=60 [facility] Comment on above: Order Comment: Jamila madrigal Type: BLOOD SPECIMEN Ordering Facility: [facility] Address: [address] [place] [address] Result Comment: Sierra mated Glomerular Filtration Rate (eGFR) is calculated using the 2020 CKD-EPI creatinine equation. This equation utilizes serum creatinine, sex, and age as parameters. The creatinine assay has traceable calibration to isotope dilution-mass spectrometry. Refer to KDIGO guidelines for clinical interpretation. In patients with unstable renal function, e.g. those with acute kidney injury, the eGFR may not accurately reflect actual GFR. Performed By: #### L IPNF, 6-3, 99068-0 #### [facility] CLIA [id number] [address] Glucose [Mass/Vol] 87 mg/dL Normal 74-99 [facility] Comment on above: Order Comment: Jamila madrigal Type: BLOOD SPECIMEN Ordering Facility: [facility] Address: [address] [place] [address] Result Comment: The [place] Diabetes Association (ADA) provides guidance for cutoff values for fasting glucose and random glucose. The ADA defines fasting as no caloric intake for at least 8 hours. Fasting plasma glucose results between 100 to 125 mg/dL indicate increased risk for diabetes (prediabetes). Fasting plasma glucose results greater than or equal to 126 mg/dL meet the criteria for diagnosis of diabetes. In the absence of unequivocal hyperglycemia, results should be confirmed by repeat testing. In a patient with classic symptoms of hyperglycemia or hyperglycemic crisis, random plasma glucose results greater than or equal to 200 mg/dL meet the criteria for diagnosis of diabetes. Reference: Standards of Medical Care in Diabetes 2016, [place] [employer]. Diabetes Care. 2016.39(Suppl 1). Performed By: #### L IPNF, 3016-3, 78753-6 #### [facility] CLIA [id number] [address] [place] [address] [place] Potassium [Moles/Vol] 4.4 mmol/L Normal 3.7-5.1 [facility] Comment on above: Order Comment: Jamila madrigal Type: BLOOD SPECIMEN Ordering Facility: [facility] Address: [address] [place] [address] Performed By: #### L IPNF, 6-3, 00694-1 #### [facility] CLIA [id number] [address] [place] [address] [place] Protein [Mass/Vol] 7.7 g/dL Normal 6.3-8.0 [facility] Comment on above: Order Comment: Jamila madrigal Type: BLOOD SPECIMEN Ordering Facility: [facility] Address: [address] [place] [address] Performed By: #### L IPNF, 6-3, 73601-8 #### [facility] CLIA [id number] [address] [place] [address] [place] Sodium [Moles/Vol] 141 mmol/L Normal 136-144 [facility] Comment on above: Order Comment: Jamila madrigal Type: BLOOD SPECIMEN Ordering Facility: [facility] Address: [address] [place] [address] Performed By: #### L IPNF, 6-3, 09822-9 #### [facility] CLIA [id number] [address] [place] [address] [place] Urea nitrogen [Mass/Vol] 7 mg/dL Normal 7-21 [facility] Comment on above: Order Comment: Speci men Type: BLOOD SPECIMEN Ordering Facility: [facility] Address: [facility] [place] [id number] Performed By: #### L IP, 3016-3, 46073-5 #### [facility] CLIA [id number] [address] [place] [address] [facility] LIPID PANEL, NONFASTINGon Cholesterol [Mass/Vol] 220 mg/dL High NINF - 200 mg/dL [facility] Comment on above: <200 mg/dL, Desirabl e 200-239 mg/dL, Borderline high >239 mg/dL, High HDL Cholesterol, Nonfasting 47 mg/dL 39 - PINF mg/dL [facility] Comment on above: 40-59 mg/dL, Accepta ble >59 mg/dL, High: Negative risk factor for coronary heart disease <40 mg/dL, Low: Positive risk factor for coronary heart disease LDL Cholesterol, Nonfasting 146 mg/dL High NINF - 100 mg/dL [facility] Comment on above: <100 mg/dL, Optimal 100-129 mg/dL, Near optimal/above optimal 130-159 mg/dL, Borderline high 160-189 mg/dL, High >189 mg/dL, Very high Secondary prevention optimal LDL Cholesterol levels are recommended to be < 70 mg/dL LDL/HDL Ratio, Nonfasting 3.11 mg/dL High NINF - 2.54 mg/dL [facility] Comment on above: Reference: 1. National Cholesterol Education Program ATP III Guideline At-A-Glance Quick Desk Reference: National Heart, Lung, and Blood [place]. National Institutes of Health. 2001: NIH Publication No. 01-3305. 2. An International Atherosclerosis Society position paper: global recommendations for the management of dyslipidemia: executive summary, Atherosclerosis. 2014: 232(2):410-413. Non HDL Cholesterol, Nonfasting 173 mg/dL High NINF - 130 mg/dL [facility] Comment on above: <130 mg/dL, Optimal 130-159 mg/dL, Near optimal/above optimal 160-189 mg/dL, Borderline high 190-219 mg/dL, High >219 mg/dL, Very high Secondary prevention optimal non HDL Cholesterol levels are recommended to be <100 mg/dL Total Chol/HDL Ratio, Nonfasting 4.68 mg/dL NINF - 5.10 mg/dL [facility] Triglycerides, Nonfasting 135 mg/dL NINF - 150 mg/dL [facility] Comment on above: <150 mg/dL, Normal 150-199 mg/dL, Borderline high 200-499 mg/dL, High >499 mg/dL, Very high VLDL Cholesterol, Nonfasting 27 mg/dL NINF - 30 mg/dL [facility] Cholesterol [Mass/Vol] 220 mg/dL High <200 [facility] Comment on above: Order Comment: Jamila madrigal Type: BLOOD SPECIMEN Ordering Facility: [facility] Address: [address] [place] [address] Result Comment: <200 mg/dL, Desirable 200-239 mg/dL, Borderline high >239 mg/dL, High Performed By: #### L CORINNA, 3016-3, 95542-0 #### [facility] CLIA [id number] [address] HDL CHOLESTEROL, NF 47 mg/dL Normal >39 [facility] Comment on above: Order Comment: Jamila madrigal Type: BLOOD SPECIMEN Ordering Facility: [facility] Address: [address] [place] [address] Result Comment: 40-5 9 mg/dL, Acceptable >59 mg/dL, High: Negative risk factor for coronary heart disease <40 mg/dL, Low: Positive risk factor for coronary heart disease Performed By: #### L CORINNA, 6-3, 50548-0 #### [facility] CLIA [id number] [address] LDL CHOLESTEROL, NF 146 mg/dL High <100 [facility] Comment on above: Order Comment: Jamila [facility] Type: BLOOD SPECIMEN Ordering Facility: [facility] Address: [address] [place] [address] Result Comment: <100 mg/dL, Optimal 100-129 mg/dL, Near optimal/above optimal 130-159 mg/dL, Borderline high 160-189 mg/dL, High >189 mg/dL, Very high Secondary prevention optimal LDL Cholesterol levels are recommended to be < 70 mg/dL Performed By: #### L IPKRISSY, 3016-3, 77886-8 #### [facility] CLIA [id number] [address] LDL/HDL RATIO, NF 3.11 mg/dL High <2.54 [facility] Comment on above: Order Comment: Jamila madrigal Type: BLOOD SPECIMEN Ordering Facility: [facility] Address: [address] [place] [address] Result Comment: Refe patyce: 1. National Cholesterol Education Program ATP III Guideline At-A-Glance Quick Desk Reference: National Heart, Lung, and Blood [place]. National Institutes of Health. 2001: NIH Publication No. 01-3305. 2. An International Atherosclerosis Society position paper: global recommendations for the management of dyslipidemia: executive summary, Atherosclerosis. 2014: 232(2):410-413. Performed By: #### L IPNF, 3, #### [facility] CLIA [id number] [address] NON HDL CHOL, NF 173 mg/dL High <130 [facility] Comment on above: Order Comment: Jamila madrigal Type: BLOOD SPECIMEN Ordering Facility: [facility] Address: [address] [place] [address] Result Comment: <130 mg/dL, Optimal 130-159 mg/dL, Near optimal/above optimal 160-189 mg/dL, Borderline high 190-219 mg/dL, High >219 mg/dL, Very high Secondary prevention optimal non HDL Cholesterol levels are recommended to be <100 mg/dL Performed By: #### L IPNF, 3015-06, #### [facility] CLIA [id number] [address] T CHOL/HDL RATIO NF 4.68 mg/dL Normal <5.10 [facility] Comment on above: Order Comment: Jamila madrigal Type: BLOOD SPECIMEN Ordering Facility: [facility] Address: [address] [place] [address] Performed By: #### L IPNF, 3015-3, 33048-0 #### [facility] CLIA [id number] [address] TRIGLYCERIDES, NF 135 mg/dL Normal <150 [facility] Comment on above: Order Comment: Jamila madrigal Type: BLOOD SPECIMEN Ordering Facility: [facility] Address: [address] [place] [address] Result Comment: <150 mg/dL, Normal 150-199 mg/dL, Borderline high 200-499 mg/dL, High >499 mg/dL, Very high Performed By: #### L IPNF, 3016-3, 17078-8 #### [facility] CLIA [id number] [address] [place] [address] [place] VLDL CHOLESTEROL, NF 27 mg/dL Normal <30 [facility] Comment on above: Order Comment: Jamila madrigal Type: BLOOD SPECIMEN Ordering Facility: [facility] Address: [address] [place] [address] Performed By: #### L IPNF, 3016-3, 83967-4 #### [facility] CLIA [id number] [address] No Panel Informationon 07-08 Interpretation and review of laboratory results Abnormal [facility] T4 Free SerPl-mCncon 025 Free T4 [Mass/Vol] 1.8 ng/dL High 0.9-1.7 [facility] Comment on above: Order Comment: Jamila madrigal Type: BLOOD SPECIMEN Ordering Facility: [facility] Address: [address] [place] [address] Performed By: #### 3 024-7 #### [facility] CLIA [id number] [address] [place] [address] [place] THYROID STIMULATING HORMONEo n 07-08-2024 TSH Qn 0.414 m[IU]/L [facility] Comment on above: If the patient is pr egnant, TSH reference range varies by gestational period: First Trimester (weeks 9-12): 0.180-2.990 mIU/L Second Trimester: 0.110-3.980 mIU/L Third Trimester: 0.480-4.710 mIU/L Thad Nation et al. A Practical Approach for the Verifications and Determination of Site- and Trimester-Specific Reference Intervals for Thyroid Function tests in . Thyroid, 2019:29:3:412-420. Marco Antonio Rowell et al. 2017 Guidelines of the [place] Thyroid Association for the Diagnosis and Management of Thyroid Disease during and the . Thyroid, 2017:27:3:315-389. TSH Qnon 07-08-2024 Interpretation and review of laboratory results Normal [facility] TSH SerPl-aCncon 07-08-2024 TSH Qn 0.414 m[IU]/L Normal 0.270-4.200 [facility] Comment on above: Order Comment: Speci men Type: BLOOD SPECIMEN Ordering Facility: [facility] Address: [address] [place] [address] Result Comment: If t he patient is , TSH reference range varies by gestational period: First Trimester (weeks 9-12): 0.180-2.990 mIU/L Second Trimester: 0.110-3.980 mIU/L Third Trimester: 0.480-4.710 mIU/L Thad Nation et al. A Practical Approach for the Verifications and Determination of Site- and Trimester-Specific Reference Intervals for Thyroid Function tests in . Thyroid, 2019:29:3:412-420. Marco Antonio Rowell et al. 2017 Guidelines of the [place] Thyroid Association for the Diagnosis and Management of Thyroid Disease during and the . Thyroid, 2017:27:3:315-389. Performed By: #### L [facility], 3016-3, 11045-9 #### [facility] CLIA [id number] [address] [place] [address] [place] SCRN MAMM (CAD)W/YULY BILATo n 03-08-2024 SCRN MAMM (CAD)W/YULY BILAT [facility] Imaging Services [address] [place] [address] [id number] SCRN MAMM (CAD)W/YULY BILAT MR#: [id number] Acct: [id number] Name: INGRID CAI Rep #: [id number] : 1980 F 43 From: Hipolito dey MD PCP: BREANNE MACK Status: REG CLI Study: SCRN MAMM (CAD)W/YULY BILAT Date of Exam: 12/22 Exam# [id number] Ordering Dr: BREANNE MACK [id number] MAMMOGRAPHY - BILATERAL SCREENING REASON FOR EXAM: Female, 43 years old. Routine annual screening examination. PERTINENT HISTORY: Grandmother with breast cancer. Aunt with breast cancer. TECHNIQUE: Digital bilateral breast yuly (3D mammographic acquisition) in the CC and MLO projections. 2-D mediolateral oblique (MLO) and craniocaudad (CC) views of both breasts were obtained. CAD: Full Field Digital Mammography with Computer Added Detection was performed. COMPARISON: Comparison is made with prior study February 23, 2023 and May 17, 2021. FINDINGS: Breast Composition: The breasts are heterogeneously dense, which may obscure small masses. There are no dominant masses or suspicious calcifications. No other significant abnormalities are identified. There has been no significant change since the prior study. BI/SCRN MAMM (CAD)W/YULY BILAT IMPRESSION: Stable bilateral screening mammogram. Yearly follow-up mammogram recommended. (A) ASSESSMENT CATEGORY: BIRADS Category 1: Negative. A letter regarding these results will be sent to the patient by the facility within 30 days. Approximately 10% of breast cancers are not detected by mammography. A normal mammogram should not delay biopsy of a clinically suspicious abnormality. [id number] Electronically Signed: Hipolito Canales MD at 8:54 EST , CC: BREANNE MACK Associate Professor Plant Pathology: Signed Normal [facility] THYROID PANEL - EXTERNALon 0 06-02-2023 Free Thyroxine (FT4) - Intl 1.4 [facility] TSH - Intl 1.27 [facility] TSH DL <= 0.005 mIU/L Qnon 0 06-09-2022 Interpretation and review of laboratory results Abnormal [facility] TSH Qn 0.09 m[IU]/L Low [facility] MRI FOOT W/O CONTRASTon 0 11-19-2020 MRI FOOT W/O CONTRAST Patient Name: INGRID CAI STUDY: MRI of the left forefoot and hindfoot/ankle without IV contrast; 11/19/2020 11:48 am INDICATION: PLANTAR FASCIITIS OF LEFT FOOT. COMPARISON/CORRELATION: None. ACCESSION NUMBER(S): [id number] ORDERING CLINICIAN: PHILIP DOMINGO TECHNIQUE: Multiplanar multisequence MR imaging of the left forefoot and hindfoot/ankle was obtained without IV contrast. FINDINGS: TENDONS: The flexor and extensor tendons of the forefoot are intact. The flexor and extensor tendons of the ankle are intact. The peroneal and Achilles tendons are intact.. LIGAMENTS: The major ligamentous structures of the forefoot are intact. The Lisfranc ligament is normal. The anterior talofibular, calcaneofibular, and posterior talofibular ligaments are intact. The anterior and posterior tibiofibular ligaments are intact. The deep and superficial components of the deltoid ligament are intact. The spring ligament is intact. There is thickening of the medial band of the plantar fascia near the calcaneal insertional site with intrinsic and surrounding soft tissue edema. Mild marrow edema at the plantar aspect of the calcaneus at the insertion of the plantar aponeurosis. There is no tear of the plantar fascia. JOINTS: The MTP and interphalangeal joints are normal in appearance. The articulations of the midfoot, hindfoot, and ankle are normal. There is no evidence of osteochondral defect. OSSEOUS STRUCTURES: There is no evidence of fracture or marrow replacing lesion. However, there is slight edema involving the plantar aspect of the calcaneus near the insertional site of the plantar fascia. SOFT TISSUES: There is no evidence of muscular atrophy or edema. No suspicious soft tissue lesions or fluid collections are identified. The tarsal tunnel is normal. The sinus tarsi is normal with preservation of fat signal. IMPRESSION: Moderate plantar fasciitis. I personally reviewed the images/study and I agree with the findings as stated. This study was interpreted at [place], [place]. Electronically signed by: SRIDEVI RASHEED MD [facility] Vital Signs Date Time Vital Sign Value Performing Clinician Svetlana augustin 07-08-2024 08:13-0400 Body height 159.5 cm John Saunders MD Work Phone: [facility] 07-08-2024 08:13-0400 Body mass index (BMI) [Ratio] 29.95 kg/m2 John Saunders MD Work Phone: [facility] 07-08-2024 08:13-0400 Body weight 76.2 kg John Saunders MD Work Phone: [facility] 07-08-2024 08:13-0400 Diastolic blood pressure 80 mm[Hg] John Saunders MD Work Phone: [facility] 07-08-2024 08:13-0400 Heart rate 95 /min John Saunders MD Work Phone: [facility] 07-08-2024 08:13-0400 Respiratory rate 17 /min John Saunders MD Work Phone: [facility] 07-08-2024 08:13-0400 SaO2% (BldA) [Mass fraction] 100 % John Saunders MD Work Phone: [facility] 07-08-2024 08:13-0400 Systolic blood pressure 127 mm[Hg] John Saunders MD Work Phone: [facility] 03-08-2023 09:09-0500 Diastolic blood pressure 82 mm[Hg] John Saunders MD Work Phone: [facility] 03-08-2023 09:09-0500 Systolic blood pressure 116 mm[Hg] John Saunders MD Work Phone: [facility] 03-08-2023 08:54-0500 Body height 161.5 cm John Saunders MD Work Phone: [facility] 03-08-2023 08:54-0500 Body weight 74.4 kg John Saunders MD Work Phone: [facility] 03-08-2023 08:54-0500 Heart rate 92 /min John Saunders MD Work Phone: [facility] 03-08-2023 08:54-0500 SaO2% (BldA) [Mass fraction] 100 % John Saunders MD Work Phone: [facility] 07-20-2022 16:50-0400 Diastolic blood pressure 89 mm[Hg] Jacqueline Charles MD Work Phone: [facility] 07-20-2022 16:50-0400 Heart rate 100 /min Jacqueline Charles MD Work Phone: [facility] 07-20-2022 16:50-0400 Respiratory rate 16 /min Jacqueline Charles MD Work Phone: [facility] 07-20-2022 16:50-0400 SaO2% (BldA) [Mass fraction] 98 % Jacqueline Charles MD Work Phone: [facility] 07-20-2022 16:50-0400 Systolic blood pressure 127 mm[Hg] Jacqueline Charles MD Work Phone: [facility] 07-20-2022 16:40-0400 Body height 161.5 cm Jacqueline Charles MD Work Phone: [facility] 07-20-2022 16:40-0400 Body mass index (BMI) [Ratio] 30.11 kg/m2 Jacqueline Charles MD Work Phone: [facility] 07-20-2022 16:40-0400 Body temperature 98.29 [degF] Jacqueline Charles MD Work Phone: [facility] 07-20-2022 16:40-0400 Body weight 78.52 kg Jacqueline Charles MD Work Phone: [facility] 08-04-2021 16:15-0400 Diastolic blood pressure 88 mm[Hg] Jacqueline Charles MD Work Phone: [facility] 08-04-2021 16:15-0400 Systolic blood pressure 128 mm[Hg] Jacqueline Charles MD Work Phone: [facility] 08-04-2021 16:12-0400 Body height 161.5 cm Jacqueline Charles MD Work Phone: [facility] 08-04-2021 16:12-0400 Body mass index (BMI) [Ratio] 30.75 kg/m2 Jacqueline Charles MD Work Phone: [facility] 08-04-2021 16:12-0400 Body temperature 98.2 [degF] Jacqueline Charles MD Work Phone: [facility] 08-04-2021 16:12-0400 Body weight 80.2 kg Jacqueline Charles MD Work Phone: [facility] 08-04-2021 16:12-0400 Heart rate 101 /min Jacqueline Charles MD Work Phone: [facility] 08-04-2021 16:12-0400 Respiratory rate 18 /min Jacqueline Charles MD Work Phone: [facility] 08-04-2021 16:12-0400 SaO2% (BldA) [Mass fraction] 96 % Jacqueline Charles MD Work Phone: [facility] 12-04-2020 09:35-0400 Body height 157.5 cm Philip Domingo Jr. DPM Work Phone: [facility] 12-04-2020 09:35-0400 Body mass index (BMI) [Ratio] 30.18 kg/m2 Philip Domingo Jr., DPM Work Phone: [facility] 12-04-2020 09:35-0400 Body temperature 96.69 [degF] Philip Domingo Jr., DPM Work Phone: [facility] 12-04-2020 09:35-0400 Body weight 74.84 kg Philip Landon Jr., DPM Work Phone: [facility] 12-04-2020 09:35-0400 Diastolic blood pressure 101 mm[Hg] Philip Landon Jr., DPM Work Phone: [facility] 12-04-2020 09:35-0400 Heart rate 92 /min Philip Landon Jr., DPM Work Phone: [facility] 12-04-2020 09:35-0400 Systolic blood pressure 126 mm[Hg] Philip Landon Jr., DPM Work Phone: [facility] 11-04-2020 10:51-0400 Body temperature 98.2 [degF] Philip Landon Jr., DPM Work Phone: [facility] 11-04-2020 10:51-0400 Diastolic blood pressure 103 mm[Hg] Philip Landon Jr., DPM Work Phone: [facility] 11-04-2020 10:51-0400 Heart rate 82 /min Philip Landon Jr., DPM Work Phone: [facility] 11-04-2020 10:51-0400 Systolic blood pressure 137 mm[Hg] Philip Landon Jr., DPM Work Phone: [facility] 10-07-2020 08:10-0400 Body height 157.5 cm Philip Landon Jr., DPM Work Phone: [facility] 07-29-2020 08:10-0400 Body mass index (BMI) [Ratio] 30.18 kg/m2 Philip Landon Jr., DPM Work Phone: [facility] 07-29-2020 08:10-0400 Body weight 74.84 kg Philip Landon Jr., DPM Work Phone: [facility] 06-29-2020 08:10-0500 Diastolic blood pressure 104 mm[Hg] Philip Landon Jr., DPM Work Phone: [facility] 06-29-2020 08:10-0500 Systolic blood pressure 148 mm[Hg] Philip Domingo Jr. DPMaday Work Phone: [facility] Encounters Encounter Date Encounter Type Care Provider Facility Start: [facility]-20[facility] Start: 02-27-2025 End: 02-27-2025 ambulatory [facility] Facility:[facility] Start: 02-27-2025 Encounter for gyneco logical examination (general) (routine) without abnormal findings CHELLY [facility] Start: 11-28-2024 End: 11-28-2024 ambulatory [facility]ANNE [facility] Facility:[facility] Start: 07-11-2024 End: 09-10-2024 Follow-up encounter John Saunders MD Work Phone: [place] Provider Adult Start: 07-09-2024 End: 07-09-2024 ambulatory JOHN SAUNDERS Facility:[facility] Start: 07-09-2024 End: 07-09-2024 Follow-up encounter John Saunders MD Work Phone: Endocrinology Comment on above: Pure hypercholestero lemia (Primary Dx); Elevated alkaline phosphatase level Start: 07-08-2024 End: 07-09-2024 ambulatory JOHN SAUNDERS Facility:[facility] Comment on above: Blood Teat Results Start: 07-08-2024 End: 07-08-2024 Patient encounter procedure John Saunders MD Work Phone: Endocrinology Comment on above: Primary hypertension (Primary Dx); Acquired hypothyroidism; PCOS (polycystic ovarian syndrome); Vitamin D deficiency Start: 04-15-2024 End: 04-15-2024 Refill John Saunders MD Work Phone: Endocrinology Comment on above: Refill Request Start: 03-08-2024 End: 03-08-2024 ambulatory IVORY MORRIS Facility:[facility] Start: 06-08-2023 Orders Only John Saunders MD Work Phone: Endocrinology Start: 06-07-2023 ambulatory John Saunders MD Work Phone: Endocrinology Comment on above: Bloodwork Start: 06-02-2023 End: 06-06-2023 ambulatory JACQUELINE CHARLES [facility] Start: 03-08-2023 End: 03-08-2023 Patient encounter procedure John Saunders MD Work Phone: Endocrinology Comment on above: Acquired hypothyroid ism (Primary Dx); PCOS (polycystic ovarian syndrome); Primary hypertension; Vitamin D deficiency Start: 02-27-2023 ambulatory John Saunders MD Work Phone: Endocrinology Comment on above: Bloodwork Start: 02-23-2023 End: 02-23-2023 ambulatory [facility] Work Phone: Start: 02-23-2023 End: 02-23-2023 Patient encounter procedure [facility] Work Phone: Start: 07-20-2022 End: 07-20-2022 ambulatory JACQUELINE CHARLES [facility] Amb[facility] Start: 07-20-2022 End: 07-20-2022 Periodic preventive med est patient 40-64yrs Jacqueline Charles MD Work Phone: [facility] Comment on above: Preventative health care (Primary Dx); Hypertension, unspecified type; Hypothyroidism, unspecified type Start: 07-20-2022 End: 07-20-2022 Patient encounter status Jacqueline Charles MD Work Phone: [facility] Start: 07-10-2022 Refill John Saunders MD Work Phone: Endocrinology Comment on above: Refill Request Start: 06-09-2022 Orders Only Jacqueline Charles MD Work Phone: [facility] Comment on above: Hypothyroidism, unsp ecified type (Primary Dx) Start: 03-22-2022 Orders Only Jacqueline Charles MD Work Phone: [facility] Start: 02-22-2022 End: 02-22-2022 ambulatory JACQUELINE CHARLES [facility] Ambulatory Start: 10-02-2021 Refill John Saunders MD Work Phone: Endocrinology Comment on above: Refill Request Start: 08-04-2021 End: 08-04-2021 ambulatory JACQUELINE CHARLES [facility] Ambulatory Start: 08-04-2021 End: 08-04-2021 Office outpatient new 30 minutes Jacqueline Charles MD Work Phone: [facility] Comment on above: High vitamin D level (Primary Dx); Hypothyroidism, unspecified type; Obesity, unspecified classification, unspecified obesity type, unspecified whether serious comorbidity present Start: 12-04-2020 End: 12-04-2020 Office outpatient visit 15 minutes Philip Domingo DPM Work Phone: [facility] Comment on above: Plantar fasciitis of left foot (Primary Dx) Start: 11-04-2020 End: 11-04-2020 Office outpatient visit 15 minutes Philip Domingo DPM Work Phone: [facility] Comment on above: Plantar fasciitis of left foot (Primary Dx) Start: 10-22-2020 End: 10-22-2020 Chart abstracting Philip Domingo DPM Work Phone: [facility] Comment on above: PCOS (polycystic ova chastity syndrome); Plantar fasciitis of left foot; Thyroid condition Procedures Date Procedure Procedure Detail Performing Clinician Start: 06-02-2023 THYROID PANEL - EXTERNAL [facility] Provider Start: 02-23-2023 Screening mammography Start: 08-04-2021 Adult depression scr eening assessment Jacqueline Charles MD Work Phone: Start: 06-21-2021 Microscopic observat ion [Identifier] in Cervix by Cyto stain Jacqueline Charles MD Work Phone: Start: 05-17-2021 Mammography Jacqueilne Charles MD Work Phone: Plan of Treatment Date Care Activity Detail Author Start: 12-30-2024 Influenza vaccination Influenz a Vaccine (Season Ended) [facility] Start: 07-09-2024 End: 07-09-2024 ambulatory 07/09/2024 4:00 PM EDT Results Only [facility] [address] [place] [address] [facility] Start: 07-09-2024 End: 10-08-2024 ALK PHOS ISOENZYM BL ALK PHOS ISOENZYM BL Lab Routine Elevated alkaline phosphatase level Expected: 07/09/2024, Expires: 10/08/2024 [facility] Work Phone: Comment on above: Expected: 07/09/2024 , Expires: 10/08/2024 Start: 07-08-2024 End: 10-07-2024 25-hydroxyvitamin D3 [Mass/volume] in Serum or Plasma [facility] Comment on above: Expected: 07/08/2024 , Expires: 10/07/2024 Start: 07-08-2024 End: 10-07-2024 Thyroxine (T4) free [Mass/volume] in Serum or Plasma [facility] Work Phone: Comment on above: Expected: 07/08/2024 , Expires: 10/07/2024 Start: 07-08-2024 End: 07-08-2024 Patient encounter procedure 07/08/2024 8:20 AM EDT Office Visit Endocrinology [address] [place] [id number] John Saunders MD 97 [place] [id number] yrly thyroid f/u Endocrinology Comment on above: yrly thyroid f/u Start: 06-21-2024 Screening for malign ant neoplasm of cervix Pap Smear [facility] Start: 12-31-2023 Covid-19 Vaccine ( season) Covid-19 Vaccine () [facility] Start: 12-31-2023 Influenza vaccination Influenza Vacc ine (#1) [facility] Start: 07-21-2023 History and physical examination, annual for health maintenance Wellness Visit [facility] Start: 05-01-2023 Depression Assessment Depression Ass essment [facility] Start: 05-01-2023 End: 07-31-2023 Thyrotropin [Units/volume] in Serum or Plasma TSH BLD Lab Routine Acquired hypothyroidism Expected: 05/01/2023, Expires: 07/31/2023 [facility] Work Phone: Comment on above: Expected: 05/01/2023 , Expires: 07/31/2023 Start: 05-01-2023 End: 07-31-2023 Thyroxine (T4) free [Mass/volume] in Serum or Plasma T4 FREE/FREE THYROX Lab Routine Acquired hypothyroidism Expected: 05/01/2023, Expires: 07/31/2023 [facility] Work Phone: Comment on above: Expected: 05/01/2023 , Expires: 07/31/2023 Start: 02-27-2023 End: 05-29-2023 Thyrotropin [Units/volume] in Serum or Plasma TSH BLD Lab Routine Acquired hypothyroidism Expected: 02/27/2023, Expires: 05/29/2023 [facility] Work Phone: Comment on above: Expected: 02/27/2023 , Expires: 05/29/2023 Start: 02-27-2023 End: 05-29-2023 Thyroxine (T4) free [Mass/volume] in Serum or Plasma T4 FREE/FREE THYROX Lab Routine Acquired hypothyroidism Expected: 02/27/2023, Expires: 05/29/2023 [facility] Work Phone: Comment on above: Expected: 02/27/2023 , Expires: 05/29/2023 Start: 01-23-2023 End: 01-23-2023 Patient encounter procedure 01/23/2023 Office Visit Primary Care Jacqueline Charles MD [address] [place] [address] [facility] Start: 12-30-2022 Covid-19 Vaccine () Covid-19 Vaccine () [facility] Start: 12-30-2022 Influenza vaccination Influenza Vacc ine (#1) [facility] Start: 08-04-2022 Depression screening using PHQ-9 (Patient Health Questionnaire 9) score Depression Screening (PHQ-2/9) [facility] Start: 08-04-2022 Hepatitis C screening Hepatitis C Sc reening [facility] Comment on above: Postponed from 04/27 (Patient Refused) Start: 08-04-2022 HIV screening HIV Screening [facility] Comment on above: Postponed from 04/27 (Patient Refused) Start: 08-04-2022 Tetanus vaccination Tetanus: Every 1 0yrs [facility] Comment on above: Postponed from 02/04 (Patient Refused) Start: 06-21-2022 History and physical examination, annual for health maintenance Wellness Visit [facility] Start: 06-20-2022 End: 06-20-2022 Patient encounter procedure 06/20/2022 Office Visit Primary Care Jacqueline Charles MD [address] [address] [facility] Start: 05-25-2022 End: 05-25-2022 Patient encounter procedure 05/25/2022 Office Visit Primary Care Jacqueline Charles MD [facility] [address] [address] [facility] Start: 05-17-2022 Screening for malign ant neoplasm of breast Mammogram [facility] Start: 05-01-2022 DEPRESSION ASSESSMENT DEPRESSION ASS ESSMENT [facility] Start: 02-07-2022 End: 02-07-2022 Patient encounter procedure 02/07/2022 Office Visit Primary Care Jacqueline Charles MD [facility] [address] [address] [facility] Start: 12-30-2021 Influenza vaccination INFLUENZA (#1) [facility] Start: 10-04-2021 End: 08-04-2022 Vitamin D, 25-hydroxy measurement Vitamin D, Total, 25-OH Lab Routine High vitamin D level Expected: 10/04/2021, Expires: 08/04/2022 [facility] Work Phone: Comment on above: Expected: 10/04/2021 , Expires: 08/04/2022 Start: 05-14-2021 COVID-19 Vaccine (4 - Booster for Pfizer series) COVID-19 Vaccine (4 - Booster for Pfizer series) [facility] Start: 2021 Mammography [facility] Start: 2021 Screening for malign ant neoplasm of breast [facility] Start: 12-30-2020 Influenza vaccination [facility] Start: 11-11-2020 End: 11-04-2021 MR Foot Left Without Contrast MR Foot Left Without Contrast Imaging Routine Plantar fasciitis of left foot Expected: 11/11/2020, Expires: 11/04/2021 [facility] Comment on above: Expected: 11/11/2020 , Expires: 11/04/2021 Start: 11-04-2020 End: 11-04-2020 Patient encounter procedure 11/04/2020 Office Visit Podiatry Philip Domingo Jr., DPM [address] [place] [address] [phone] [facility] Start: 02-04-2019 Tetanus vaccination Tetanus: Every 1 0yrs [facility] Start: 02-04-2019 Urine microalbumin profile DTaP,Tdap,Td Vaccine (2 - Td or Tdap) [facility] Start: 06-15-2014 HPV TESTING HPV TESTING [facility] Start: 06-15-2014 PAP TESTING PAP TESTING [facility] Start: 06-15-2014 Screening for malign ant neoplasm of cervix [facility] Start: 06-15-2012 Screening for malign ant neoplasm of cervix Cervical Cancer Screening [facility] Start: 2000 Hepatitis B Vaccine (1 of 3 - 19+ 3-dose series) Hepatitis B Vaccine (1 of 3 - 19+ 3-dose series) [facility] Start: 2000 Urine microalbumin profile DTAP,TDAP,TD (1 - Tdap) [facility] Start: 1999 ANNUAL PCP TEAM BILLET GRINDER KOREY DISEASE VISIT ANNUAL PCP TEAM CHRONIC DISEASE VISIT [facility] Start: 1999 Anxiety Screening Anxiety Screening [facility] Start: 1999 BP Controlled (<130/80) BP Controlle d (<130/80) [facility] Start: 1999 Depression Screening Depression Scre kyle [facility] Start: 1999 Hepatitis C screening Hepatitis C [facility] Start: 1999 HEPATITIS C SCREENING HEPATITIS C [facility] Start: 1996 HIV screening HIV Screening [facility] Start: 1993 COVID-19 Vaccine (1) COVID-19 Vaccin e (1) [facility] Start: 1993 Depression screening using PHQ-9 (Patient Health Questionnaire 9) score [facility] Start: 1984 History and physical examination, annual for health maintenance Wellness Visit [facility] Start: 1981 HEPATITIS B (1 of 3 - 3-dose series) HEPATITIS B (1 of 3 - 3-dose series) [facility] Start: 1981 Hepatitis B Vaccine (1 of 3 - 3-dose series) Hepatitis B Vaccine (1 of 3 - 3-dose series) [facility] Start: 1981 Screening for malign ant neoplasm of cervix Pap Smear [facility] Start: 1981 Tetanus vaccination Tetanus: Every 1 0yrs [facility] Immunizations Immunization Date Immunization Notes Care Provider [facility] 02-10-2022 influenza, injectabl e, quadrivalent, contains preservative Jacqueline Charles MD Work Phone: [facility] 02-10-2022 influenza, injectabl e, quadrivalent, preservative free Jacqueline Charles MD Work Phone: [facility] 02-10-2022 influenza virus vaccine, unspecified formulation John Saunders MD Work Phone: [facility] 02-05-2021 influenza, injectabl e, quadrivalent, preservative free Jacqueline Charles MD Work Phone: [facility] 02-05-2021 influenza virus vaccine, unspecified formulation John Saunders MD Work Phone: [facility] 01-28-2020 Influenza, injectabl e, [facility] [place] Canine Kidney, preservative free, quadrivalent Jacqueline Charles MD Work Phone: [facility] 01-28-2020 influenza, injectabl e, quadrivalent, contains preservative Jacqueline Charles MD Work Phone: [facility] 02-04-2009 tetanus toxoid, redu rebecca diphtheria toxoid, and acellular pertussis vaccine, adsorbed Jacqueline Charles MD Work Phone: [facility] 05-03-2000 TD(adult) unspecifie d formulation Jacqueline Charles MD Work Phone: [facility] Payers Date Payer Category Payer Self-pay [id number] 2018 Private Health Insurance MMO SUP [employer] PPO [id number] 2015 Unknown [id number] 2015 Unknown [id number] 2015 Unknown [id number] 1981 Unknown [id number] 1981 Unknown [id number] 1981 Unknown [id number] 1981 Unknown [id number] Unknown [id number] Unknown [id number] Social History Date Type Detail Facility Start: 10-22-2020 End: 11-04-2020 Tobacco smoking status NHIS Never smoker [facility] Start: 10-22-2020 End: 07-20-2022 Alcohol intake Lifetime non-drinker (finding) [facility] Start: 1980 Sex Assigned At Not on file [facility] Start: 11-04-2020 End: 07-08-2024 Tobacco use and exposure Never used [facility] Start: 07-25-2021 End: 07-19-2022 Exposure to SARS-CoV-2 (event) Not sure [facility] Start: 01-21-2011 End: 07-08-2024 Tobacco smoking status MAIS Ex-smoker [facility] Work Phone: Start: 10-29-2005 End: 10-29-2010 History of tobacco use Current smoker [facility] Work Phone: Start: 10-29-2005 End: 10-29-2010 History of tobacco use Cigarette Smoker [facility] Work Phone: Start: 07-05-2021 End: 07-08-2024 Alcohol intake Current non-drinker of alcohol (finding) [facility] Start: 02-21-2022 History SDOH Alcohol Frequency 2 [facility] Start: 02-21-2022 History SDOH Alcohol Std Drinks 1 [facility] Start: 02-21-2022 History SDOH Social Connections Phone 3 [facility] Start: 02-21-2022 History SDOH Financial 5 [facility] Start: 12-15-2021 End: 03-08-2023 History of Social function [facility] Start: 12-15-2021 End: 03-08-2023 Tobacco use panel [facility] National Score (1-10 0), lower number is lower risk Not on file [facility] Start: 04-23-2013 Tobacco smoking stat [facility] Unknown if ever smoked [facility] Start: 1980 Sex Assigned At Female [facility] Functional Status Date Assessment Result Facility 12-01-2014 Are you deaf, or do you have serious difficulty hearing No 12/01/2014 3:36 PM EDT [facility] 12-01-2014 Are you blind, or do you have serious difficulty seeing, even when wearing glasses No 12/01/2014 3:36 PM EDT [facility] 12-01-2014 Do you have serious difficulty walking or climbing stairs No 12/01/2014 3:36 PM EDT [facility] 12-01-2014 Do you have difficul ty dressing or bathing No 12/01/2014 3:36 PM EDT [facility] 12-01-2014 Because of a physica l, mental, or emotional condition, do you have difficulty doing errands alone such as visiting a physician's office or shopping No 12/01/2014 3:36 PM EDT [facility] Mental Status Date Assessment Result Facility 12-01-2014 Because of a physica l, mental, or emotional condition, do you have serious difficulty concentrating, remembering, or making decisions No 12/01/2014 3:36 PM EDT [facility] Clinical Notes 07-23-2018 to 02-27-2025 Telephone Encounter - Jessica Cintron RN - 07/09/2024 8:39 AM EDTTelephone Encounter - Jessica Cintron RN - 07/09/2024 8:39 AM EDTPatient InstructionsPatient Instructions Note Date & Type Note Facility 02-27-2025 Note HNO ID: [id number] Author: CHELLY GEORGE MD Service: ? Author Type: Physician Type: Progress Notes Filed: 02/27/2025 16:31 Note Text: Nutritionalist offered: Patient declines. Quintero is a 44 year old who presents for an annual gynecologic exam with complaints, discuss PCOS, heavy and painful periods, discuss possibility of hysterectomy. Previous patient of Dr. Garcia. Established with an dining service supervisor for thyroid disease and PCOS. She reports she is on Metformin. Reports PCP was following her CMP and alkaline phosphatase has been elevated. Per patient PCP did not recommend follow up. Age at Menarche: 13 Still get period: Yes Menstrual cycles are regular and monthly. She does not keep track of cycles. Bleeding lasts 3-4 days. Uses a super plus tampon on heaviest days and she is changing it often Had weight gain with OCP Did well with IUD in the past She is not interested in an IUD at this time. Desires a hysterectomy as she does not desire future Bleeding amount bothersome: Yes Bleeding between periods: No Period symptoms: Breast tenderness; Cramps; Mood change Time with current partner: 20 years Number of lifetime partners: 2 control frequency: Never HPV vaccine: No; HPV:N/A Last pap smear: 2009, normal History of abnormal pap: No, all prior PAP smears have been normal Bothersome pelvic pain: No Last mammogram: 2023normal OB History Gravida2 Para1 Term0 Preterm0 AB0 Living2 SAB0 IAB0 Ectopic0 Multiple0 Live Births2 Development Expert History LMP: 02/01/2025, Having periods Age at Menarche: Age at First : Age at Menopause: Development Expert History Comments: Sexual Activity: Yes; Male Contraception: Tubal Ligation Menstrual Tracking History Flowsheet Row Office Visit from 02/27/2025 in OB/Gynecology Period Cycle (Days) 30 Period Duration (Days) 4 Menstrual Flow Heavy PAST MEDICAL HISTORY Diagnosis Date Elevated dehydroepiandrosterone (DHEA) level 06/20/2016 Goiter 07/23/2018 Thyroid ultrasound in 07/2018 showed no discrete thyroid nodule bilaterally. 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 Insertion of IUD 12/31/2008 Mirena Vitamin D deficiency 06/20/2016 PAST SURGICAL HISTORY Procedure Laterality Date DELIVERY ONLY 2008 DELIVERY ONLY 2011 IUD INSERTION (CUSTODIAN SUPERVISOR DEPT)_*FL 12/31/2008 Mirena IUD REMOVAL (CUSTODIAN SUPERVISOR DEPT)_*FL 01/21/2011 LIGATE FALLOPIAN TUBE 12/2011 TONSILLECTOMY PRIMARY/SECONDARY Tonsillectomy FAMILY HISTORY Problem Relation Age of Onset No Known Problems Mother No Known Problems Father No Known Problems Brother Arthritis Maternal Grandmother Heart Maternal Grandmother Hypertension Maternal Grandfather Lipids Maternal Grandfather Breast Cancer Paternal Grandmother Alzheimer's Disease Paternal Grandfather Breast Cancer Paternal Aunt SOCIAL HISTORY Social History Tobacco Use Smoking status: Former Current packs/day: 0.00 Types: Cigarettes Start date: 10/29/2005 Quit date: 10/29/2010 Years since quittin.3 Smokeless tobacco: Never Vaping Use Vaping status: Never Used Substance Use Topics Alcohol use: No Drug use: No REVIEW OF SYSTEMS Abdomen: No abdominal pain, nausea, vomiting, diarrhea, or constipation. Bladder: No dysuria, gross hematuria, urinary frequency, urinary urgency, or incontinence. Breast: No breast lumps, nipple d/c, overlying skin changes, redness or skin retraction. Allergies and current medication updated:Yes SENSITIVE EXAM: The sensitive examination was discussed with the Patient or Patient's Authorized Multiple Drum Sander. As applicable, any other physician, advance practice provider, medical student, or other health professional student that will be observing or involved in the sensitive examination for educational or training purposes was discussed with the Patient or Authorized Multiple Drum Sander. The Patient or Authorized Multiple Drum Sander has agreed to proceed with the sensitive examination. (Sensitive examination includes inspection and/or palpation of the breasts, pelvis, prostate and anorectal regions). EXAM: BP 118/80 Ht 5' 3 (1.60m) Wt 169 lb (76.7kg) LMP 02/01/2025 BMI 29.94 kg/(m2). GENERAL: pleasant, female in no apparent distress HEENT: Normocephalic and atraumatic BREAST: soft, non-tender, symmetric, no dominant mass, normal nipple-areolar complex, no lymphadenopathy, and no nipple discharge CHEST: Normal inspiratory effort ABDOMEN: soft, non-tender, and no masses PELVIC: external genitalia normal, normal Bartholin's glands, urethra, [place]'s glands, no vulvar lesions, no cervical lesions, good vaginal support, physiologic discharge present, normal appearing perineal body and perianal region BIMANUAL: uterus normal size, shape and consistency, no adnexal masses, and non-tender RECTOVAGINAL: deferred. NEURO: exam grossly non-focal EXTREMITIES: normal ASSESSMENT/PLAN: 1) Health maintenance: Pap do (more content not included)... [facility] 07-09-2024 Telephone encounter Note Labs were completed on 07/08/24. Please review and advise. [facility] 07-09-2024 Miscellaneous Notes Labs were completed on 07/08/24. Please review and advise. documented in this encounter [facility] 07-08-2024 Instructions John Saunders MD - 07/08/2024 8:22 AM EDT Get labs done at [facility]. Will call with results. See me again in 12 months. documented in this encounter [facility] 07-08-2024 Note HNO ID: [id number] Author: JOHN SAUNDERS MD Service: ? 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 Menses remain regular since starting metformin. History of vitamin D deficiency. Now has hypertension, on HCTZ. Weight fairly stable. COVID vaccination was completed. No new neck symptoms/enlargement. Current Outpatient Medications on File Prior to Visit Medication Sig metFORMIN ER (GLUCOPHAGE XR) 500 mg 24 hr tablet TAKE 4 TABLETS ONCE DAILY levothyroxine (SYNTHROID) 150 mcg tablet TAKE 1 TABLET ONCE DAILY hydroCHLOROthiazide 12.5 mg capsule Take 1 capsule by mouth once daily. Cholecalciferol, Vitamin D3, 25 mcg (1,000 unit) cap Take 2 capsules by mouth once daily. ALLERGIES Allergen Reactions Dexamethasone Mental Status Change Erythromycin CHILDHOOD REACTION PAST MEDICAL HISTORY Diagnosis Date Insertion of IUD 12/31/2008 Mirena PAST SURGICAL HISTORY Procedure Laterality Date IUD INSERTION (CUSTODIAN SUPERVISOR DEPT)_*FL 12/31/2008 Mirena IUD REMOVAL (CUSTODIAN SUPERVISOR DEPT)_*FL 01/21/2011 REMOVAL OF TONSILS,<12 Y/O Tonsillectomy FAMILY HISTORY Problem Relation Age of Onset Alzheimer's Disease Paternal Grandfather Arthritis Maternal Grandmother Breast Cancer Paternal Grandmother Breast Cancer Paternal Aunt Heart Maternal Grandmother Hypertension Maternal Grandfather Lipids Maternal Grandfather SOCIAL HISTORY Social History Substance Use Topics Smoking status: Former Smoker Years: 5.00 Types: Cigarettes Quit date: 10/29/2010 Smokeless tobacco: Never Used Alcohol use No Answers submitted by the patient for this visit: Core Review of Systems (Submitted on 07/01/2024) Fever : No Night sweats: No Recent unintentional weight change: No Nasal Congestion: No Hearing Loss: No Vision Disturbance: No A cough: No Difficulty Breathing?: No Chest pain: No Irregular heartbeat: No Leg Swelling: No Nausea: No Diarrhea: No Black tarry stools: No Difficulty Urinating?: No Awaken at Night More Than Once to Urinate?: No Joint pain or stiffness: No Muscle aches: No Leg or Foot Discomfort at Night?: No A rash: No Dizziness: No Headaches: No Memory Loss: No Seizures: No PHYSICAL EXAM: BP 127/80 Pulse 95 Resp 17 Ht 159.5 cm (5' 2.8) Wt 76.2 kg (167 lb 15.9 oz) LMP 06/14/2024 (Exact Date) SpO2 100% BMI 29.95 kg/m? Weight up 3 pounds since 03/2023 General: alert, in no acute distress. BP normal. Eyes: STEPH, extra occular movements normal Oropharynx: lips, mucosa, and tongue normal, Thyroid: firm, unenlarged, no palpable thyromegaly. Thyroid size: normal Heart: RRR Breathing unlabored. Abdomen:not examined Extremities: normal exam of the extremities, no edema present, no deformities Neuro: Awake, alert and oriented x 3, No involuntary motions. Skin: color, texture, turgor normal, no rashes or lesions Thyroid ultrasound in 07/2018 showed no discrete thyroid nodule bilaterally. IMPRESSION: Hypothyroidism - continue the current levothyroxine dose, recheck TFTs Vitamin D deficiency - continue supplement, check vitamin D level PCOS - continue metformin, weight loss efforts, check CMP Hypertension - good BP control, check lipid panel PLAN: Check CMP, lipid panel, TSH, free T4, and 25-hydroxyvitamin D Will call with results. Continue current medications See me again in 12 months. John Saunders MD I spent a total of 30 minutes on the date of service which included preparing to see the patient, [id number] patient care, completing clinical documentation, performing a medically appropriate examination, counseling and educating the patient/family/caregiver and ordering medications, tests, or procedures. 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 Menses remain regular since starting metformin. History of vitamin D deficiency. Now has hypertension, on HCTZ. Weight fairly stable. COVID vaccination was completed. No new neck symptoms/enlargement. Current Outpatient Medications on File Prior to Visit Medication Sig metFORMIN ER (GLUCOPHAGE XR) 500 mg 24 hr tablet TAKE 4 TABLETS ONCE DAILY levothyroxine (SYNTHROID) 150 mcg tablet TAKE 1 TABLET ONCE DAILY hydroCHLOROthiazide 12.5 mg capsule Take 1 capsule by mouth once daily. Cholecalciferol, Vitamin D3, 25 mcg (1,000 unit) cap Take 2 capsules by mouth once daily. ALLERGIES Allergen Reactions Dexamethasone Mental Status Change Erythromycin CHILDHOOD REACTION PAST MEDICAL HISTORY Diagnosis Date Insertion of IUD 12/31/2008 Mirena PAST SURGICAL HISTORY Procedure Laterality Date IUD INSERTION (CUSTODIAN SUPERVISOR DEPT)_*FL 12/31/2008 Mirena IUD REMOVAL (CUSTODIAN SUPERVISOR DEPT)_*FL 01/21/2011 REMOVAL OF TONSILS,<12 Y/O Tonsillectomy FAMILY HISTORY Problem Relation Age of Onset Alzheimer's Disease Paternal Grandfather Arthritis Maternal Grandmother Breast Cancer Paternal Grandmother Breast Cancer Paternal Aunt Heart Maternal Grandmother Hypertension Maternal Grandfather Lipids Maternal Grandfather SOCIAL HISTORY Social History Substance Use Topics Smoking status: Former Smoker Years: 5.00 Types: Cigarettes Quit date: 10/29/2010 Smokeless tobacco: Never Used Alcohol use No Answers submitted by the patient for this visit: Core Review of Systems (Submitted on 07/01/2024) Fever : No Night sweats: No Recent unintentional weight change: No Nasal Congestion: No Hearing Loss: No Vision Disturbance: No A cough: No Difficulty Breathing?: No Chest pain: No Irregular heartbeat: No Leg Swelling: No Nausea: No Diarrhea: No Black tarry stools: No Difficulty Urinating?: No Awaken at Night More Than Once to Urinate?: No Joint pain or stiffness: No Muscle aches: No Leg or Foot Discomfort at Night?: No A rash: No Dizziness: No Headaches: No Memory Loss: No Seizures: No PHYSICAL EXAM: BP 127/80 Pulse 95 Resp 17 Ht 159.5 cm (5' 2.8) Wt 76.2 kg (167 lb 15.9 oz) LMP 06/14/2024 (Exact Date) SpO2 100% BMI 29.95 kg/m Weight up 3 pounds since 03/2023 General: alert, in no acute distress. BP normal. Eyes: STEPH, extra occular movements normal Oropharynx: lips, mucosa, and tongue normal, Thyroid: firm, unenlarged, no palpable thyromegaly. Thyroid size: normal Heart: RRR Breathing unlabored. Abdomen:not examined Extremities: normal exam of the extremities, no edema present, no deformities Neuro: Awake, alert and oriented x 3, No involuntary motions. Skin: color, texture, turgor normal, no rashes or lesions Thyroid ultrasound in 07/2018 showed no discrete thyroid nodule bilaterally. IMPRESSION: Hypothyroidism - continue the current levothyroxine dose, recheck TFTs Vitamin D deficiency - continue supplement, check vitamin D level PCOS - continue metformin, weight loss efforts, check CMP Hypertension - good BP control, check lipid panel PLAN: Check CMP, lipid panel, TSH, free T4, and 25-hydroxyvitamin D Will call with results. Continue current medications See me again in 12 months. John Saunders MD I spent a total of 30 minutes on the date of service which included preparing to see the patient, [id number] patient care, completing clinical documentation, performing a medically appropriate examination, counseling and educating the patient/family/caregiver and ordering medications, tests, or procedures. documented in this encounter [facility] 04-15-2024 Telephone encounter Note Prescription Refill Information The patient has been identified by name and date of : Yes Caregiver verified no other encounters exist for this prescription request: Yes Caregiver confirmed with patient/requestor that no other refills are due, in the near future, with this provider at this time: Yes The last office visit in the department: 03/08/23 Does the patient have a future office visit with this provider/department: Yes-07/08/24 Requested Prescriptions Pending Prescriptions Disp Refills metFORMIN ER (GLUCOPHAGE XR) 500 mg 24 hr tablet [Pharmacy Med Name: METFORMIN HCL ER TABS 500MG] 360 tablet 3 Sig: TAKE 4 TABLETS ONCE DAILY levothyroxine (SYNTHROID) 150 mcg tablet [Pharmacy Med Name: L-THYROXINE (SYNTHROID) TABS 150MCG] 104 tablet 3 Sig: TAKE 1 TABLET ONCE DAILY AND 2 TABLETS ON MONDAY Joycelyn Brooks MA April 15, 2024 9:26 AM [facility] 04-15-2024 Miscellaneous Notes Prescription Refill Information The patient has been identified by name and date of : Yes Caregiver verified no other encounters exist for this prescription request: Yes Caregiver confirmed with patient/requestor that no other refills are due, in the near future, with this provider at this time: Yes The last office visit in the department: 03/08/23 Does the patient have a future office visit with this provider/department: Yes-07/08/24 Requested Prescriptions Pending Prescriptions Disp Refills metFORMIN ER (GLUCOPHAGE XR) 500 mg 24 hr tablet [Pharmacy Med Name: METFORMIN HCL ER TABS 500MG] 360 tablet 3 Sig: TAKE 4 TABLETS ONCE DAILY levothyroxine (SYNTHROID) 150 mcg tablet [Pharmacy Med Name: L-THYROXINE (SYNTHROID) TABS 150MCG] 104 tablet 3 Sig: TAKE 1 TABLET ONCE DAILY AND 2 TABLETS ON MONDAY Joycelyn Brooks MA April 15, 2024 9:26 AM documented in this encounter [facility] 06-08-2023 Miscellaneous Notes Images from the original note were not included. Entered into 60mo. Please review. THYROID [facility] 06/02/2023 Component TSH T4, Free Component 06/02/2023 06/02/2023 06/08/2022 TSH 1.27 -- 0.09 Low T4, Free -- 1.4 documented in this encounter [facility] 03-08-2023 Instructions John Saunders MD - 03/08/2023 9:04 AM EST Continue current levothyroxine dose. Get thyroid test done again in 05/2023. See me again in 12 months. Check BP in the community, goal BP less than 130/80 mm Hg. 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 Menses remain regular since starting metformin. History of vitamin D deficiency. Now has hypertension, on HCTZ. Has lost weight in the past year. COVID vaccination was completed. No new neck symptoms/enlargement. Current Outpatient Medications on File Prior to Visit Medication Sig metFORMIN ER (GLUCOPHAGE XR) 500 mg 24 hr tablet TAKE 4 TABLETS BY MOUTH ONCE DAILY. levothyroxine (SYNTHROID) 150 mcg tablet Take 150 mcg by mouth once daily. Cholecalciferol, Vitamin D3, 25 mcg (1,000 unit) cap Take 2 capsules by mouth once daily. HCTZ 12.5 mg every day ALLERGIES Allergen Reactions Dexamethasone Mental Status Change Erythromycin CHILDHOOD REACTION PAST MEDICAL HISTORY Diagnosis Date Insertion of IUD 12/31/2008 Mirena PAST SURGICAL HISTORY Procedure Laterality Date IUD INSERTION (CUSTODIAN SUPERVIS[employer] DEPT)_*FL 12/31/2008 Mirena IUD REMOVAL (CUSTODIAN SUPERVIS[employer] DEPT)_*FL 01/21/2011 REMOVAL OF TONSILS,<12 Y/O Tonsillectomy FAMILY HISTORY Problem Relation Age of Onset Alzheimer's Disease Paternal Grandfather Arthritis Maternal Grandmother Breast Cancer Paternal Grandmother Breast Cancer Paternal Aunt Heart Maternal Grandmother Hypertension Maternal Grandfather Lipids Maternal Grandfather SOCIAL HISTORY Social History Substance Use Topics Smoking status: Former Smoker Years: 5.00 Types: Cigarettes Quit date: 10/29/2010 Smokeless tobacco: Never Used Alcohol use No Answers submitted by the patient for this visit: Core Review of Systems (Submitted on 03/04/2023) Fever : No Night sweats: No Recent unintentional weight change: No Nasal Congestion: No Hearing Loss: No Vision Disturbance: No A cough: No Difficulty Breathing?: No Chest pain: No Irregular heartbeat: No Leg Swelling: No Nausea: No Diarrhea: No Black tarry stools: No Difficulty Urinating?: No Awaken at Night More Than Once to Urinate?: No Joint pain or stiffness: No Muscle aches: No Leg or Foot Discomfort at Night?: No A rash: No Dizziness: No Headaches: No Memory Loss: No Seizures: No PHYSICAL EXAM: BP 126/92 Pulse 92 Ht 161.5 cm (5' 3.58) Wt 74.4 kg (164 lb 0.4 oz) SpO2 100% BMI 28.52 kg/m Weight down 10 pounds since 06/2021 General: alert, in no acute distress. BP elevated. Repeat BP 116/82 Eyes: STEPH, extra occular movements normal Oropharynx: lips, mucosa, and tongue normal, Thyroid: firm, unenlarged, no nodule(s) palpable. Thyroid size: normal Heart: RRR Breathing unlabored. Abdomen:not examined Extremities: normal exam of the extremities, no edema present, no deformities Neuro: Awake, alert and oriented x 3, No involuntary motions. Skin: color, texture, turgor normal, no rashes or lesions Latest Reference Range & Units 03/04/23 09:31 Free T4 0.9 - 1.7 ng/dL 1.4 TSH 0.270 - 4.200 mIU/L 1.150 Thyroid ultrasound in 07/2018 showed no discrete thyroid nodule bilaterally. IMPRESSION: Hypothyroidism - conitnue the current levothyroxine dose, recheck TFTs in 05/2023 Vitamin D deficiency - continue supplement PCOS - continue metformin, weight loss efforts Hypertension - good BP control PLAN: Recheck thyroid blood test in 05/2023 Will call with results. Continue metformin. See me again in 12 months. John Saunders MD I spent a total of 30 minutes on the date of service which included preparing to see the patient, [id number] patient care, completing clinical documentation, performing a medically appropriate examination, counseling and educating the patient/family/caregiver and ordering medications, tests, or procedures. documented in this encounter [facility] 02-27-2023 Miscellaneous Notes Please review. documented in this encounter [facility] 07-20-2022 Evaluation + Plan note Associated Problem(s): Hypothyroidism Last tsh was 0.09 She is taking levothyroxine 150mcg daily Following up with endocrinology in September [facility] 07-20-2022 Miscellaneous Notes Associated Problem(s): Hypothyroidism Last tsh was 0.09 She is taking levothyroxine 150mcg daily Following up with endocrinology in September Associated Problem(s): HTN (hypertension) controlled Associated Problem(s): Glucose intolerance On metformin 2000 mg daily documented in this encounter [facility] 07-20-2022 Evaluation + Plan note Associated Problem(s): HTN (hypertension) controlled [facility] 07-20-2022 Evaluation + Plan note Associated Problem(s): Glucose intolerance On metformin 2000 mg daily [facility] 07-20-2022 History of Present illness Narrative Assessment Assessment/Plan: Problem List HTN (hypertension) controlled Hypothyroidism Last tsh was 0.09 She is taking levothyroxine 150mcg daily Following up with endocrinology in September [facility] care - Primary Return in about 6 months (around 01/20/2023). For any new medications prescribed today, patient was educated about indications for the medication, how to take the medication and potential side effects of the medications. Jacqueline Charles MD [facility] [address] [facility] [address] [facility] [id number] Dept: [phone] Subjective Chief Complaint Patient presents with Annual Exam Gap Closure (Health Maintenance) Mammogram due on 05/17/2022 HPI Ingrid Cai is a 42 y.o. female with a PMHx of PCOS, hypothyroidism, glucose intolerance and obesity presenting for preventative Hypothyroidism- denies any acute complaints today. Last tsh was 0.09 in jun 2021-patient's levothyroxine was decreased to 125 mcg but patient was following up with endocrinology for this. She decreased her dose to 150 mcg daily instead. States that her thyroid has been quite sensitive and it took a very long time for her to get to a normal level where she feels good Advised patient I am more than happy for endocrinology to manage this and I am not upset about pt not taking 125mcg dose Pt continued to state endocrinology has managed it- I assured her that that was absolutely fine and would much rather have her follow up with them as she has been established with them Any concerns/complaints: Preventative Today we discussed: -Getting screening tests that you and your doctor decide on. Screening helps find diseases before any symptoms appear. -Eating healthy foods. Choose fruits, vegetables, whole grains, protein, and low-fat dairy foods. Limit fat, especially saturated fat. Reduce salt in your diet. -Limit alcohol. If you are a man, have no more than 2 drinks a day or 14 drinks a week. If you are a woman, have no more than 1 drink a day or 7 drinks a week. -Get at least 30 minutes of physical activity on most days of the week. -Reach and stay at a healthy weight. This will lower your risk for many problems, such as obesity, diabetes, heart disease, and high blood pressure. -Do not smoke or allow others to smoke around you. -Care for your mental health. It is easy to get weighed down by worry and stress. Learn strategies to manage stress, like deep breathing and mindfulness, and stay connected with your family and community. -Protect your skin from too much sun. When you're outdoors from 10 a.m. to 4 p.m., stay in the shade or cover up with clothing and a hat with a wide brim. Wear sunglasses that block UV rays. Even when it's cloudy, put broad-spectrum sunscreen (SPF 30 or higher) on any exposed skin. -See a dentist one or two times OBGYN HX Sexually active: declined Last pap smear: 2021- patient denies any history of abnormal Pap smears. She denies any vaginal complaints at this time, no abnormal bleeding. Any breast concerns? none Last mammogram:2021-negative We discussed she was overdue for mammogram- advised her I can place an order if she would like. She stated that she gets mammograms in [place] Advised pt to follow up with them to see if they can schedule one for her Pt seemed agitated asking- can't I call them up and schedule it myself since I'm >40? 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 DEXA scan: not applicable If smoking, ready to quit? not applicable Low dose CT chest: not applicable HIV testing:declined HCV testing: declined Immunizations: Flu: declined Tdap: declined Pneumonia shot: not applicable Shingrex: not applicable Covid 19 vaccine: declined Taking vitamin D? no All pertinent positives and negatives are documented in ROS Patient's medications, allergies, past medical history, surgical history history, family history, social history were reviewed. Spent more than 30 minutes with patient, coordinating patient care, including reviewing charts and counseling patient. Patient Active Problem List Diagnosis Heel spur Obesity PCOS (polycystic ovarian syndrome) Plantar fasciitis of left foot HTN (hypertension) Vitamin D deficiency Hypothyroidism High vitamin D level Restless leg Glucose intolerance Preventative health care Past Surgical History: Procedure Laterality Date SECTION, CLASSIC TONSILLECTOMY History reviewed. No pertinent family history. Social History Tobacco Use Smoking status: Never Smokeless tobacco: Never Vaping Use Vaping Use: Never used Substance Use Topics Alcohol use: Never Drug use: Never Patient's Medications New Prescriptions No medications on file Previous Medications ASCORBIC ACID, VITAMIN C, (VITAMIN C) 500 MG TABLET Take 2 (two) tablets (1,000 mg total) by mouth daily . B COMPLEX VITAMINS CAPSULE Take 1 (one) capsule by mouth daily . CHOLECALCIFEROL, VITAMIN D3, 1,000 UNIT TABLET Take 2 (two) tablets (2,000 Units total) by mouth daily . HYDROCHLOROTHIAZIDE (MICROZIDE) 12.5 MG CAPSULE Take 1 (one) capsule (12.5 mg total) by mouth daily . LEVOTHYROXINE (SYNTHROID, LEVOTHROID) 125 MCG TABLET Take 1 (one) tablet (125 mcg total) by mouth once daily . METFORMIN HCL (METFORMIN ORAL) Take 2,000 mg by mouth daily . ZINC SULFATE (ZINC-15 ORAL) Take by mouth . Modified Medications No medications on file Discontinued Medications No medications on file Physical Exam: BP 127/89 (BP Location: Right arm, Patient Position: Sitting, BP Cuff Size: Adult) Pulse (!) 100 Temp 98.3 F (36.8 C) (Infrared) Resp 16 Ht 5' 3.58 Wt 78.5 kg (173 lb 1.6 oz) LMP 07/09/2022 (Exact Date) SpO2 98% BMI 30.11 kg/m Wt Readings from Last 3 Encounters: 07/20/22 78.5 kg (173 lb 1.6 oz) 02/22/22 77.8 kg (171 lb 8 oz) 08/04/21 80.2 kg (176 lb 12.8 oz) BP Readings from Last 3 Encounters: 07/20/22 127/89 02/22/22 (!) 144/98 08/04/21 128/88 Physical Exam Vitals and nursing note reviewed. Constitutional: Appearance: Normal appearance. HENT: Head: Normocephalic and atraumatic. Mouth/Throat: Mouth: Mucous membranes are moist. Eyes: Extraocular Movements: Extraocular movements intact. Conjunctiva/sclera: Conjunctivae normal. Pupils: Pupils are equal, round, and reactive to light. Cardiovascular: Rate and Rhythm: Normal rate and regular rhythm. Pulmonary: Effort: Pulmonary effort is normal. Breath sounds: Normal breath sounds. Abdominal: General: Abdomen is flat. Bowel sounds are normal. Palpations: Abdomen is soft. Skin: General: Skin is warm. Neurological: General: No focal deficit present. Mental Status: She is alert and oriented to person, place, and time. Mental status is at baseline. Psychiatric: Attention and Perception: Attention normal. Speech: Speech normal. Behavior: Behavior normal. Thought Content: Thought content normal. Comments: Agitated mood Health Maintenance Due Topic Date Due Mammogram 05/17/2022 Depression Screening (PHQ-2/9) 08/04/2022 PHQ9: EYAL-7 documented in this encounter [facility] 07-11-2022 Miscellaneous Notes Requester: Pharmacy Last Visit in Endocrinology: Provider name: John Saunders MD , Date 07/05/2021 Next Scheduled Appt in Endo: 10/24/2022 Last Refill: 07/05/2021 Number of Refills given: 3 Requested Prescriptions Pending Prescriptions Disp Refills levothyroxine (SYNTHROID) 150 mcg tablet [Pharmacy Med Name: LEVOTHYROXINE 150 MCG TABLET] 110 tablet 3 Sig: TAKE 1 TABLET BY MOUTH ONCE DAILY. TAKE TWO PILLS ON SUNDAYS. Please review and advise. Светлана Nielsen MA documented in this encounter [facility] 10-04-2021 Miscellaneous Notes Requester: Patient Last Visit in Endocrinology: Provider name: John Saunders MD , Date 07/05/2021 Next Scheduled Appt in Endo: Visit date not found Last Refill: 07/05/21 Number of Refills given: 3 Pending Prescriptions Disp Refills METFORMIN ER 500 MG TABLET,EXTENDED RELEASE 24 HR 360 tablet 3 Sig: Take 4 tablets by mouth once daily. ERNESTINA: No Please review and advise. Loern Laguna LPN documented in this encounter [facility] 08-06-2021 Instructions Jacqueline Charles MD - 08/06/2021 9:44 PM EDT Problem List Items Addressed This Visit Endocrine Hypothyroidism Symptoms well controlled on levothyroxine 150mcg Other Obesity Body mass index is 30.75 kg/m .. Recommended therapeutic lifestyle changes including healthy diet starting with a 500 calorie deficit/day and 30-60 min of exercise at least 3 times/week to help with weight loss. Patient can advance exercise regiment as tolerated. Types of exercise include strength training (cross fit, CINDY, weight lifting) or aerobic exercise(/brisk walk/jogging/running) or a combination of both. -had extensive discussion about medications available with patient -she is very interested- she would like to find out which medication her friend is taking so we can discuses if that may be an option for her High vitamin D level - Primary Hx of vit d deficiency but began taking 77783 u daily for last few months -last level was 109 -will get repeat in 3 months- she is currently taking 4000u daily Relevant Orders Vitamin D, Total, 25-OH If any referrals were placed at the time of your visit please allow 2 weeks for processing. If you haven't heard from anyone within 2 weeks please contact my office so we can look into the status of your referral. If you were given any labs today please ensure they are completed according to the directions given. Most normal results will be available through [employer] however if abnormal, you will be notified. Please allow 48-72 hours for review, and let you know what steps, if any, are needed next. If you haven't heard from us after that please call to inquire. If labs were ordered to be done PRIOR to your next visit we will discuss the results at the time of your office visit. If any procedures or imaging studies were ordered that must be prior authorized please give us 2 weeks to get them approved. Once approved someone should call you to schedule them or give you a date and time that they were scheduled for. If you haven't heard anything within 2 weeks of the office visit please call the office so we can look into their status. Customer Service/Billing Questions: [phone] [facility] Assistance: [phone] or [phone] Financial Assistance: [phone] or [phone] documented in this encounter [facility] 08-06-2021 Evaluation + Plan note Associated Problem(s): Obesity Body mass index is 30.75 kg/m .. Recommended therapeutic lifestyle changes including healthy diet starting with a 500 calorie deficit/day and 30-60 min of exercise at least 3 times/week to help with weight loss. Patient can advance exercise regiment as tolerated. Types of exercise include strength training (cross fit, CINDY, weight lifting) or aerobic exercise(/brisk walk/jogging/running) or a combination of both. -had extensive discussion about medications available with patient -she is very interested- she would like to find out which medication her friend is taking so we can discuses if that may be an option for her [facility] 08-06-2021 Miscellaneous Notes Associated Problem(s): Obesity Body mass index is 30.75 kg/m .. Recommended therapeutic lifestyle changes including healthy diet starting with a 500 calorie deficit/day and 30-60 min of exercise at least 3 times/week to help with weight loss. Patient can advance exercise regiment as tolerated. Types of exercise include strength training (cross fit, CINDY, weight lifting) or aerobic exercise(/brisk walk/jogging/running) or a combination of both. -had extensive discussion about medications available with patient -she is very interested- she would like to find out which medication her friend is taking so we can discuses if that may be an option for her Associated Problem(s): Hypothyroidism Symptoms well controlled on levothyroxine 150mcg Associated Problem(s): High vitamin D level Hx of vit d deficiency but began taking 81364 u daily for last few months -last level was 109 -will get repeat in 3 months- she is currently taking 4000u daily documented in this encounter [facility] 08-06-2021 Evaluation + Plan note Associated Problem(s): Hypothyroidism Symptoms well controlled on levothyroxine 150mcg [facility] 08-06-2021 Evaluation + Plan note Associated Problem(s): High vitamin D level Hx of vit d deficiency but began taking 84694 u daily for last few months -last level was 109 -will get repeat in 3 months- she is currently taking 4000u daily [facility] 08-04-2021 History of Present illness Narrative Subjective Patient ID: Ingrid Cai is a 41 y.o. female. Chief Complaint Patient presents with Establish Care HPI Ingrid Cai is a 41 y.o. female with a PMHx of PCOS, hypothyroidism and obesity presenting as a new patient to the clinic today to establish care. Elevated vit D- 07/05/21 was 109. She was taking 10 000 U daily for the last year. Currently she is taking 4000U. She is being followed up endocrinology- we placed vit d level to be tested in 3 months. Hypothyroidism- denies any acute complaints today. She states symptoms are well controlled on her current dose. Obesity- would like to discuss options for weight loss. We discuss oral and injectable medications. She states she 'doesn't eat much' but has not been tracking her calories, does not have significant exercise. She states she snacks mostly throughout the day and may have 1-2 small meals. 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 Patient seems very interested in medications for weight loss- she states her friend is on one and she will find out which one it is, and would like to discuss it further with me. Body mass index is 30.75 kg/m .. Recommended therapeutic lifestyle changes including healthy diet starting with a 500 calorie deficit/day and 30-60 min of exercise at least 3 times/week to help with weight loss. Patient can advance exercise regiment as tolerated. Types of exercise include strength training (cross fit, CINDY, weight lifting) or aerobic exercise(/brisk walk/jogging/running) or a combination of both. All pertinent positives and negatives are documented in ROS Patient's medications, allergies, past medical history, surgical history history, family history, social history were reviewed. Spent more than 20 minutes with patient, coordinating patient care, including reviewing charts and counseling patient. Past Medical History: Diagnosis Date Heel spur Obesity PCOS (polycystic ovarian syndrome) Plantar fasciitis of left foot Thyroid condition Past Surgical History: Procedure Laterality Date SECTION, CLASSIC TONSILLECTOMY History reviewed. No pertinent family history. Social History Tobacco Use Smoking status: Never Smoker Smokeless tobacco: Never Used Substance Use Topics Alcohol use: Never Drug use: Never Allergies Allergen Reactions Dexamethasone Other (See Comments) Erythromycin Other (See Comments) CHILDHOOD REACTION Patient's Medications New Prescriptions No medications on file Previous Medications ASCORBIC ACID, VITAMIN C, (VITAMIN C) 500 MG TABLET Take 500 mg by mouth daily . B COMPLEX VITAMINS CAPSULE Take 1 capsule by mouth daily . CHOLECALCIFEROL, VITAMIN D3, 1,000 UNIT TABLET Take 1,000 Units by mouth daily . LEVOTHYROXINE SODIUM (LEVOTHYROXINE ORAL) Take 150 mcg by mouth daily 150mcg Monday-Monday, 300mcg monday . METFORMIN HCL (METFORMIN ORAL) Take 2,000 mg by mouth daily . METHYLPREDNISOLONE (MEDROL) 4 MG TABLET Take 4 mg by mouth Once, as directed on package labeling . ZINC SULFATE (ZINC-15 ORAL) Take by mouth . Modified Medications No medications on file Discontinued Medications No medications on file Review of Systems Constitutional: Negative for appetite change, chills, fatigue and fever. Eyes: Negative for visual disturbance. Respiratory: Negative for cough, chest tightness, shortness of breath and wheezing. Cardiovascular: Negative for chest pain and palpitations. Gastrointestinal: Negative for abdominal distention, abdominal pain, blood in stool, constipation, diarrhea and nausea. Genitourinary: Negative for dysuria, frequency, hematuria and urgency. Musculoskeletal: Negative for back pain, joint swelling and neck pain. Skin: Negative for rash. Neurological: Negative for dizziness, tremors, weakness, numbness and headaches. Psychiatric/Behavioral: Negative for confusion, decreased concentration, dysphoric mood, sleep disturbance and suicidal ideas. The patient is not nervous/anxious. Objective Vitals: 08/04/21 1612 08/04/21 1615 BP: (!) 143/88 128/88 BP Location: Right arm Right arm Patient Position: Sitting Sitting BP Cuff Size: Adult Adult Pulse: (!) 101 Resp: 18 Temp: 98.2 F (36.8 C) TempSrc: Oral SpO2: 96% Weight: 80.2 kg (176 lb 12.8 oz) Height: 5' 3.58 Estimated body mass index is 30.75 kg/m as calculated from the following: Height as of this encounter: 5' 3.58. Weight as of this encounter: 80.2 kg (176 lb 12.8 oz). Physical Exam Vitals and nursing note reviewed. Constitutional: Appearance: Normal appearance. She is obese. HENT: Head: Normocephalic and atraumatic. Mouth/Throat: Mouth: Mucous membranes are moist. Eyes: Extraocular Movements: Extraocular movements intact. Cardiovascular: Rate and Rhythm: Normal rate and regular rhythm. Heart sounds: Normal heart sounds. Pulmonary: Effort: Pulmonary effort is normal. Breath sounds: Normal breath sounds. Abdominal: General: Abdomen is flat. There is no distension. Palpations: Abdomen is soft. Musculoskeletal: General: Normal range of motion. Skin: General: Skin is warm. Neurological: General: No focal deficit present. Mental Status: She is alert and oriented to person, place, and time. Mental status is at baseline. Psychiatric: Attention and Perception: Attention and perception normal. Mood and Affect: Mood normal. Speech: Speech normal. Behavior: Behavior normal. Thought Content: Thought content normal. Cognition and Memory: Cognition and memory normal. Judgment: Judgment normal. PHQ9: Over the last 2 weeks, how often have you been bothered by any of the following problems? Little interest or pleasure in doing things: Not at all Feeling down, depressed, or hopeless: Not at all PHQ-2 Total Score: 0 Trouble falling or staying asleep, or sleeping too much: Not at all Feeling tired or having little energy: Not at all Poor appetite or overeating: Not at all Feeling bad about yourself - or that you are a failure or have let yourself or your family down: Not at all Trouble concentrating on things, such as reading the newspaper or watching television: Not at all Moving or speaking so slowly that other people could have noticed. Or the opposite - being so fidgety or restless that you have been moving around a lot more than usual: Not at all Thoughts that you would be better off , or of hurting yourself in some way: Not at all PHQ-9 Total Score: 0 EYAL-7 Over the last 2 weeks, how often have you been bothered by the following problems? Feeling nervous, anxious or on edge: Not at all Not being able to stop or control worrying: Not at all Worrying too much about different things: Not at all Trouble relaxing: Not at all Being so restless that it is hard to sit still: Not at all Becoming easily annoyed or irritable: Not at all Feeling afraid as if something awful might happen: Not at all EYAL-7 Score: 0 Tobacco Counseling: Counseling given: Not Answered Assessment/Plan: Problem List None Return in about 6 months (around 02/03/2022) for Follow up Chronic Conditions. For any new medications prescribed today, patient was educated about indications for the medication, how to take the medication and potential side effects of the medications. Jacqueline Charles MD [facility] [address] [facility] [address] [facility] [id number] Dept: [phone] Depression Screening 08/04/2021 Little interest or pleasure in doing things 0 Feeling down, depressed, or hopeless 0 PHQ-2 Total Score 0 Trouble falling or staying asleep, or sleeping too much 0 Feeling tired or having little energy 0 Poor appetite or overeating 0 Feeling bad about yourself - or that you are a failure or have let yourself or your family down 0 Trouble concentrating on things, such as reading the newspaper or watching television 0 Moving or speaking so slowly that other people could have noticed. Or the opposite - being so fidgety or restless that you have been moving around a lot more than usual 0 Thoughts that you would be better off , or of hurting yourself in some way 0 PHQ-9 Total Score 0 Depression Screening 08/04/2021 Little interest or pleasure in doing things 0 Feeling down, depressed, or hopeless 0 PHQ-2 Total Score 0 Trouble falling or staying asleep, or sleeping too much 0 Feeling tired or having little energy 0 Poor appetite or overeating 0 Feeling bad about yourself - or that you are a failure or have let yourself or your family down 0 Trouble concentrating on things, such as reading the newspaper or watching television 0 Moving or speaking so slowly that other people could have noticed. 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 She states that her heel is still with pain on and off again sore nature stabbing and sharp. She states that she was able to get her MRI at [facility] without any issues and it went generally very well. Physical Vascular: DP PT pulses are easily palpable 2-4. CFT is fair no edema. Derm: No open wounds no ulcers no rashes no deep nodules. Neuro: Light touch is normal Babinski's is normal. Musculoskeletal: Still with much pain to the left foot fascial origin though negative lateral calcaneal squeeze test. Ankle subtalar midtarsal are full and pain-free. MRI consistent with moderate plantar fasciitis to the medial cord. No fractures no dislocations no subluxations. Assessment and plan. -Patient is a pleasant 40-year-old female with acute on chronic left foot plantar fasciitis and heel spur syndrome with pain. -Today did primarily recommend an endoscopic plantar fasciotomy though she would like to hold off if possible. -Additionally could consider as a backup option a steroid injection though additionally declined. -Therefore I did recommend that she look up and researched the surgical procedure and see if that is something she would like to proceed in the near her medium term. -Therefore she can follow-up as needed for this or any new issues. Low medical complexity decision making based on need for surgical procedure and/or steroid shot. documented in this encounter [facility] 12-04-2020 Philip Jerry Jr., DPM - 12/04/2020 10:19 AM EDT Endoscopic plantar fasciotomy (EPF) documented in this encounter [facility] 11-04-2020 Philip Jerry Jr., DPM - 11/04/2020 11:07 AM EDT Get MRI Return to review and discuss options documented in this encounter [facility] 11-04-2020 History of Present illness Narrative Patient is a pleasant 40-year-old female who comes in today for follow-up left heel pain. She states that she does not really believe that she is improving that much in regards to her heel pain. She still with substantial day in and day out pain, admits to post dive dyskinesia. She states that compared to when I met her in June, she is somewhat better however is not able to delineate how much better. Still with sharp heel pain while ambulatory, states that she feels like she is getting stabbed. Physical Vascular: DP PT pulses are easily palpable 2 out of 4. CFT is fair no edema. Derm: No open wounds no ulcers no rashes no deep nodules. Neuro: Light touch is normal Babinski's is normal. Musculoskeletal: Muscle strength is 5/5 with fair tone, can easily wiggle toes without any clicking or catching. Ankle midtarsal and subtalar full and pain-free. Still though with much pain to the fascial origin left side negative lateral calcaneal squeeze test. Ankle subtalar and midtarsal are full and pain-free. Assessment and plan: Patient is a pleasant 40-year-old female with recalcitrant left foot plantar fasciitis and heel pain. -She is failed to improve in the last 4 months still with much heel pain. -X-rays reviewed, nondiagnostic for fascial tearing. -Given her failure, did order an MRI to uptitrate differential and surgical mapping to consider an EPF versus a repeat steroid injection. -She is now tried and failed conservative therapy including steroids at home physical therapy and immobilization with the boot therefore the MRI is warranted to work-up for surgical planning. Follow-up in 2 to 4 weeks to review MRI. Low medical complexity decision making. documented in this encounter [facility] 07-23-2018 History of Past i llness Narrative Problem Noted Date Resolved Date Goiter 07/23/2018 06/07/2019 Overview: Thyroid ultrasound in 07/2018 showed no discrete thyroid nodule bilaterally. 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06/30 Elevated dehydroepiandrosterone (DHEA) level 7 07/23/2018 documented as of this encounter (statuses as of 02/28/2023) [facility] History of Past illness Narrative* Problem Noted Date Diagnosed Date Resolved Date Goiter 07/23/2018 06/07/2019 Overview: Thyroid ultrasound in 07/2018 showed no discrete thyroid nodule bilaterally. 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06/30 Elevated dehydroepiandrosterone (DHEA) level 7 07/23/2018 documented as of this encounter (statuses as of 03/08/2023) [facility] History of Past illness Narrative* Problem Noted Date Diagnosed Date Resolved Date Goiter 07/23/2018 06/07/2019 Overview: Thyroid ultrasound in 07/2018 showed no discrete thyroid nodule bilaterally. 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06/30 Elevated dehydroepiandrosterone (DHEA) level 7 07/23/2018 documented as of this encounter (statuses as of 06/08/2023) [facility] note* Diagnosis PCOS (polycystic ovarian syndrome) Polycystic ovaries Plantar fasciitis of left foot Thyroid condition Unspecified disorder of thyroid documented in this encounter [facility] note* Diagnosis Plantar fasciitis of left foot- Primary documented in this encounter [facility] note* Diagnosis Plantar fasciitis of left foot- Primary documented in this encounter [facility] note* Diagnosis High vitamin D level- Primary Hypervitaminosis D Hypothyroidism, unspecified type Obesity, unspecified classification, unspecified obesity type, unspecified whether serious comorbidity present documented in this encounter [facility] note* Diagnosis PCOS (polycystic ovarian syndrome) Polycystic ovaries documented in this encounter [facility] note* Diagnosis Hypothyroidism, unspecified type- Primary documented in this encounter [facility] note* Diagnosis Acquired hypothyroidism Unspecified hypothyroidism documented in this encounter [facility] note* Diagnosis Preventative health care- Primary Routine general medical examination at a health care facility Hypertension, unspecified type Hypothyroidism, unspecified type documented in this encounter [facility] note* Diagnosis Acquired hypothyroidism- Primary Unspecified hypothyroidism documented in this encounter [facility] noteNo assessment information availableWToledo Hospital Work Phone: Evaluation note* Diagnosis Acquired hypothyroidism- Primary Unspecified hypothyroidism PCOS (polycystic ovarian syndrome) Polycystic ovaries Primary hypertension Unspecified essential hypertension Vitamin D deficiency Unspecified vitamin D deficiency documented in this encounter [facility] note* Diagnosis PCOS (polycystic ovarian syndrome) Polycystic ovaries Acquired hypothyroidism Unspecified hypothyroidism documented in this encounter [facility] note* Diagnosis Primary hypertension- Primary Unspecified essential hypertension Acquired hypothyroidism Unspecified hypothyroidism PCOS (polycystic ovarian syndrome) Polycystic ovaries Vitamin D deficiency Unspecified vitamin D deficiency documented in this encounter [facility] note* Diagnosis Pure hypercholesterolemia- Primary Elevated alkaline phosphatase level Other nonspecific abnormal serum enzyme levels documented in this encounter [facility] Advance Directives No Advanced Directives Records FoundDocuments on File Type Date Recorded 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 Advance Directives and Kayla de la rosa Will 10/10/2020 12:00 AM Documents on File Type Date Recorded 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 Advance Directives and Living Will Documents on File Type Date Recorded 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 Advance Directives and Living Will Documents on File Type Date Recorded 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 Advance Directive(s) 04/30/2019 10:56 AM Advance Directive(s) 06/17/2017 9:14 AM Reason for Referral Status Reason Specialty Diagnoses / Procedures Referred By Contact Referred To Contact New Request Patient Preference Diagnoses Plantar fasciitis of left foot Procedures MR Foot Left Without Contrast Philip Domingo Jr., DPM [address] [place] [address] OF SERVICE NOT IN SYSTEM Summary Purpose Family History No Family History Records FoundNo Family History Records FoundNo Family History Records FoundNo Family History Records FoundNo Family History Records FoundNo Family History Records FoundNo Family History Records Found Chief Complaint and Reason for Visit Chief Complaint SCREENING Additional Source Comments Reason for Visit (unrecogniz ed section and content) Reason Comments Follow-up Left heel spur and p lantar fasc Reason Comments Follow-up Go over MRI Reason Comments Establish Care Reason Onset Date Comments Refill Request 10/02/2021 Reason Comments Refill Request Reason Comments Annual Exam Gap Closure (Health Maintenance) Mammogr am due on 05/17/2022 Reason Comments Follow Up Reason Comments Thyroid Problem INFORMATION SOURCE (unrecogn ized section and content) DATE CREATED AUTHOR 11/24/[address] [facility] DATE CREATED AUTHOR AUTHOR'S ORGANIZ ATION 07/21/2022 [facility] DATE CREATED AUTHOR AUTHOR'S ORGANIZ ATION 06/08/[address] 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 Start Date End Date Jacqueline Charles MD [address] [id number] PCP - General Internal Medicine 08/04/21 Jacqueline Charles MD [address] [place] [address] PCP - DOMINIC Attributed Provider - [employer] 10/30/11 04/30/50 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 Start Date End Date Jacqueline Charles MD [address] [place] [id number] PCP - General Internal Medicine 08/04/21 Jacqueline Charles MD [address] [place] [id number] PCP - DOMINIC Attributed Provider - [employer] Commercial 10/30/11 04/30/50 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 Start Date End Date Jacqueline Charles MD [address] [place] [id number] PCP - General Internal Medicine 08/04/21 Jacqueline Charles MD [address] [place] [address] PCP - DOMINIC Attributed Provider - [employer] Commercial 10/30/11 04/30/50 Team Status: Active Member Role Status Dates No Primary Care Physician Family Provider Active No Primary Care Physician Primary Care Provider Active Team Status: Inactive Member Role Status Dates No Primary Care Physician Primary Care Provider Active EMMA STEWARD MD Attending Provider, Referring Provi rivka Active 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 Start Date End Date Breanne Mack MD [facility] [place] [address] PCP - General Family Medicine 07/08/24 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 Start Date End Date Breanne Mack MD [address] [place] [address] PCP - General Family Medicine 07/08/24 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 Start Date End Date Breanne Mack MD [address] [place] [address] PCP - General Family Medicine 07/08/24 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 Start Date End Date Breanne Mack MD [address] [place] [address] PCP - General Family Medicine 07/08/24 Source Comments (unrecognize d section and content) In the event this informatio n is protected by the Federal Confidentiality of Alcohol and Drug Abuse Patient Records regulations: The Federal rules restrict any use of the information to criminally investigate or prosecute any alcohol or drug abuse patient.[facility] HospitalIn the event this information is protected by the Federal Confidentiality of Alcohol and Drug Abuse Patient Records regulations: The Federal rules restrict any use of the information to criminally investigate or prosecute any alcohol or drug abuse patient.[facility] HospitalIn the event this information is protected by the Federal Confidentiality of Alcohol and Drug Abuse Patient Records regulations: The Federal rules restrict any use of the information to criminally investigate or prosecute any alcohol or drug abuse patient.[facility] HospitalIn the event this information is protected by the Federal Confidentiality of Alcohol and Drug Abuse Patient Records regulations: The Federal rules restrict any use of the information to criminally investigate or prosecute any alcohol or drug abuse patient.[facility] HospitalIn the event this information is protected by the Federal Confidentiality of Alcohol and Drug Abuse Patient Records regulations: The Federal rules restrict any use of the information to criminally investigate or prosecute any alcohol or drug abuse patient.[facility] HospitalIn the event this information is protected by the Federal Confidentiality of Alcohol and Drug Abuse Patient Records regulations: The Federal rules restrict any use of the information to criminally investigate or prosecute any alcohol or drug abuse patient.[facility] HospitalIn the event this information is protected by the Federal Confidentiality of Alcohol and Drug Abuse Patient Records regulations: The Federal rules restrict any use of the information to criminally investigate or prosecute any alcohol or drug abuse patient.[facility] HospitalIn the event this information is protected by the Federal Confidentiality of Alcohol and Drug Abuse Patient Records regulations: The Federal rules restrict any use of the information to criminally investigate or prosecute any alcohol or drug abuse patient.[facility] HospitalIn the event this information is protected by the Federal Confidentiality of Alcohol and Drug Abuse Patient Records regulations: The Federal rules restrict any use of the information to criminally investigate or prosecute any alcohol or drug abuse patient.[facility] HospitalIn the event this information is protected by the Federal Confidentiality of Alcohol and Drug Abuse Patient Records regulations: The Federal rules restrict any use of the information to criminally investigate or prosecute any alcohol or drug abuse patient.[facility] HospitalIn the event this information is protected by the Federal Confidentiality of Alcohol and Drug Abuse Patient Records regulations: The Federal rules restrict any use of the information to criminally investigate or prosecute any alcohol or drug abuse patient.[facility] Goals (unrecognized section and content) Goals may be documented in a n alternate section FOR RECORDS PERTAINING TO PATIENTS WHO ARE OR HAVE BEEN ENROLLED IN A CHEMICAL DEPENDENCY/SUBSTANCEABUSE PROGRAM, SOME INFORMATION MAY BE OMITTED. This clinical summary was aggregated from multiple sources. Caution should be exercised in using it in the provision of clinical care. This summary normalizes information from multiple sources, and as a consequence, information in this document may materially change the coding, format and clinical context of patient data. In addition, data may be omitted in some cases. CLINICAL DECISIONS SHOULD BE BASED ON THE PRIMARY CLINICAL RECORDS. [facility]. provides no warranty or guarantee of the accuracy or completeness of information in this document.
== END | disposition home or self-care (01) ==
LOC: OPBI 12:26
PROVIDERS: Referring Provider Obstetrics & Gynecology; Visit Provider Obstetrics & Gynecology
DX: Z12.31 Encounter for screening mammogram for malignant neoplasm of breast (principal)
CPT/HCPCS: 77063; 77067

== ENCOUNTER → 2025-04-08 | Outpatient (CLI) | payer OTHER, SELFPAY ==
--- NOTE | 2025-04-08 13:56 | BI_ITS ---
EXAM: DIAG MAMM W/CAD, UNILAT N/A CLINICAL HISTORY: F, Age 44 y/o , ABN MAMM. Abnormal screening mammogram. TECHNIQUE: Procedure Code: [id number] Modality: MG Procedure: DIAG MAMM W/CAD, UNILAT. Compression spot views and 90 degree lateral view of the right breast were obtained. COMPARISON: Prior exam(s) dated March 26, 2025.. FINDINGS: TISSUE DENSITY: The breasts are heterogeneously dense, which may obscure small masses. Bilateral Breast Mammographic Findings: Persistent 3.9 mm nodule in the upper slightly medial aspect of the right breast. There is also evidence of a persistent 2 mm nodule in the anterior central portion of the right breast. Targeted sonographic correlation recommended. BI/DIAG MAMM W/CAD, UNILAT IMPRESSION: Persistent sub cm nodular densities as described. Sonographic correlation saeid mmended. OVERALL FINAL ASSESSMENT BI-RADS 0: INCOMPLETE - NEED ADDITIONAL IMAGING EVALUATION. RECOMMENDATION: Ultrasound Recommended Additional Recommendation none A letter with findings and recommendations will be mailed to the patient. Reading Location: [place] [id number]
--- NOTE | 2025-04-08 13:57 | US_ITS ---
PROCEDURE: BREAST LIMITED UNILATERAL 04/08/2025 REASON FOR EXAM: F, Age 44 y/o , ABN MAMM COMPARISON: Mammogram studies available dated 04/08/2025, 03/26/2025, 03/08/2024 and 02/23/2023. TECHNIQUE: Procedure Code: USBRSTLIMIT Modality: US Procedure: BREAST LIMITED UNILATERAL FINDINGS: There are 2 benign-appearing cystic masses seen in the right breast corresponding to the masses seen on the most recent mammogram studies from March 2025 and March 2025. These are located at the 2 o'clock, 6 cm from nipple position measuring 6 x 6 x 5 mm. This cyst has a septation. And 12 o'clock, 4 cm from nipple position measuring 6 x 5 x 2 mm. The cyst has a septation. No suspicious solid masses are seen in the breast. US/Breast Limited Unilateral IMPRESSION: There are 2 benign-appearing cystic masses seen in the right breast correspondi ng to masses on the mammogram. No suspicious solid masses are seen. BI-RADS 2: BENIGN RECOMMENDATION: Routine annual follow-up in 1 Year Reading Location: [id number]
== END | disposition home or self-care (01) ==
LOC: OPBI 13:54
PROVIDERS: Referring Provider Obstetrics & Gynecology; Visit Provider Obstetrics & Gynecology
DX: R92.8 Other abnormal and inconclusive findings on diagnostic imaging of breast (principal)
CPT/HCPCS: 76642; 77061; 77065; G0279